=== PATIENT | male | born 1955 | race Caucasian/White ===

== ENCOUNTER 2017-10-05 22:38 | Emergency (ER) | payer OTHER ==
--- OUTSIDE RECORDS SUMMARY | 2017-10-05 22:40 | XMS REPORT | Clinical Summary ---
:1955 Author Organization [facility] Address [address] [place] [address] Care Team Providers Name Role Phone Unknown, Phys Primary Care Provider Unavailable Allergies No Known Allergies Current Medications Prescription Sig. Disp. Refills Start Date End Date Status HYDROcodone-acetaminophe Take 1 tablet by Active n (NORCO) 7.5-325 mg per mouth 4 (four) times tablet a day as needed for moderate pain. gabapentin (NEURONTIN) Take 800 mg by mouth Active 800 mg tablet 3 (three) times a day. carisoprodol (SOMA) 350 Take 350 mg by mouth Active MG tablet every 8 (eight) hours as needed for muscle spasms. nebivolol (BYSTOLIC) 20 Take 20 mg by mouth Active mg tablet daily. aspirin (ECOTRIN) 81 MG Take 81 mg by mouth Active enteric coated tablet daily. Active Problems Not on file Family History Medical History Relation Name Comments Heart disease Father Hypertension Mother Relation Name Status Comments Father Mother Social History Tobacco Use Types Packs/Day Years Used Date Current Some Day Smoker Cigarettes 1 Tobacco Cessation: Ready to Quit: Yes Alcohol Use Drinks/Week oz/Week Comments Yes 1 Shots of liquor 0.6 Sex Assigned at Date Recorded Not on file Last Filed Vital Signs Not on file Plan of Treatment Not on file Results Not on fileafter 10/04/2016 Insurance Payer Benefit Plan / Group Subscriber ID Type Phone Address HUMANA MEDICARE HUMANA MEDICARE PPO/PFFS/ERS [facility] xxxxxxxxx PPO Home: [id number] [phone] [place], [place] [id number]
[2017-10-05] MEDS ORDERED: IPRATROPIUM BROM 0.5MG/2.5ML ONE (23:16)
[2017-10-05] MEDS ORDERED: ALBUTEROL 2.5 MG/3 ML NEB SOL ONE (23:16)
[2017-10-05 23:42] LABS: Absolute Lymphocytes (CBC) 1.1 K/uL (0.7-4.9); Absolute Monocytes 0.8 K/uL (0.1-1.3); Absolute Neutrophil 9.9 K/uL (1.8-8.0); Basophils % 1.1 % (0-1.3); Eosinophils % 2.9 % (0-4.4); Hematocrit 43.8 % (39.6-49.0); Lymphocytes % 8.8 % (15.3-44.8); MCH 32.1 pg (27.0-35.0); MCV 97.5 fL (80-100); MPV 11.6 fL (7.6-11.3); Monocytes % 6.6 % (3.3-12.3); RBC Red Blood Cell Count 4.49 M/uL (4.33-5.43)
[2017-10-05 23:53] LABS: Urine Blood NEGATIVE (NEG); Urine Glucose 2+ (NEG); Urine Protein 1+ (NEG); Urine Specific Gravity 1.005 (1.005-1.030)
[2017-10-05 23:59] LABS: Albumin 3.5 g/dL (3.4-5.0); Bilirubin Total 0.7 mg/dL (0.2-1.0); Magnesium 2.1 mg/dL (1.8-2.4); Potassium 3.9 mmol/L (3.5-5.1); Protein, Total 7.5 g/dL (6.4-8.2)
--- NOTE | 2017-10-06 01:33 | EDPHYS ---
Physician Documentation [facility] Name: Fox Olivia Age: 62 yrs Sex: Male : 1955 Arrival Date: 10/05/2017 Time: 22:38 Bed 18 Private MD: ED Physician Juan English HPI: 10/05 23:12 This 62 yrs old Male presents to ER via Ambulatory with complaints of ps1 Shortness Of Breath, Breathing Difficulty. 23:12 The patient has shortness of breath with light activity. Onset: The symptoms/episode ps1 began/occurred 1 week(s) ago. Duration: The symptoms are intermittent. Associated signs and symptoms: Pertinent positives: non-productive cough, diaphoresis, Pertinent negatives: chest pain, dizziness. hx of COPD and CHF. Recently seen Dr. Steele. Has a history of CAD with stent. . NO DVT symptoms. . Historical: - Allergies: 22:54 No Known Allergies; ao - Home Meds: 22:54 gabapentin oral oral [Active]; Soma Oral [Active]; Bystolic oral oral [Active]; ao - PMHx: 22:54 COPD; CHF; Diabetes - NIDDM; ao - PSHx: 22:54 stents; ao - Immunization history:: Adult Immunizations up to date. - Social history:: Smoking status: Patient uses tobacco products, smokes one pack cigarettes per day. Patient uses alcohol, occasionally. - Ebola Screening: : Patient negative for fever greater than or equal to 101.5 degrees Fahrenheit, and additional compatible Ebola Virus Disease symptoms. ROS: 23:13 Constitutional: Negative for fever, chills, and weight loss, Eyes: Negative for injury, ps1 pain, redness, and discharge, Cardiovascular: Negative for chest pain, palpitations, and edema, Abdomen/GI: Negative for abdominal pain, nausea, vomiting, diarrhea, and constipation, Back: Negative for injury and pain, MS/Extremity: Negative for injury and deformity, Skin: Negative for injury, rash, and discoloration, Neuro: Negative for headache, weakness, numbness, tingling, and seizure. 23:13 Respiratory: Positive for cough, with no reported sputum, shortness of breath. Exam: 23:13 Constitutional: This is a well developed, well nourished patient who is awake, alert, ps1 and in no acute distress. Head/Face: Normocephalic, atraumatic. Eyes: Pupils equal round and reactive to light, extra-ocular motions intact. Lids and lashes normal. Conjunctiva and sclera are non-icteric and not injected. Chest/axilla: Normal chest wall appearance and motion. Nontender with no deformity. No lesions are appreciated. Respiratory: Lungs have equal breath sounds bilaterally, clear to auscultation and percussion. No rales, rhonchi or wheezes noted. No increased work of breathing, no retractions or nasal flaring. Back: No spinal tenderness. No costovertebral tenderness. Full range of motion. 23:13 Skin: Warm, dry with normal turgor. Normal color with no rashes, no lesions, and no evidence of cellulitis. MS/ Extremity: Pulses equal, no cyanosis. Neurovascular intact. Full, normal range of motion. Neuro: Awake and alert, GCS 15, oriented to person, place, time, and situation. Cranial nerves II-XII grossly intact. Sensory grossly intact. 23:13 Cardiovascular: Rate: tachycardic, Rhythm: regular, Heart sounds: murmur, systolic. Vital Signs: 22:50 BP 168 / 80; Pulse 102; Resp 24; Temp 98.7(O); Pulse Ox 96% ; Weight 127.01 kg (R); ao Height 6 ft. 1 in. (185.42 cm) (R); Pain 4/10; 10/06 00:36 BP 153 / 105; Pulse 102; Resp 23 S; Pulse Ox 96% on R/A; jd3 01:48 BP 144 / 85; Pulse 93; Resp 19 S; Pulse Ox 95% on R/A; jd3 10/05 22:50 Body Mass Index 36.94 (127.01 kg, 185.42 cm) ao MDM: 10/05 23:12 Patient medically screened. ps1 10/06 01:34 Data reviewed: vital signs, nurses notes, lab test result(s), EKG, radiologic studies. ps1 ED course: negative d-dimer, neg CXR, has COPD. Will give zpack, albuterol, and medrol. Stable. . 10/05 23:09 Order name: CBC with Diff; Complete Time: 23:47 ps1 10/05 23:09 Order name: D-Dimer; Complete Time: 01:31 ps1 10/05 23:09 Order name: Magnesium; Complete Time: 00:00 ps1 10/05 23:09 Order name: Troponin (emerg Dept Use Only); Complete Time: 00:00 ps1 10/05 23:09 Order name: CMP; Complete Time: 00:00 ps1 10/05 23:28 Order name: Urine Dipstick--Ancillary (enter results); Complete Time: 23:59 eb 10/05 23:09 Order name: XRAY CXR (1 view) ps1 10/05 23:09 Order name: EKG; Complete Time: 23:10 ps1 10/05 23:09 Order name: Cardiac monitoring; Complete Time: 23:11 ps1 10/05 23:09 Order name: EKG - Nurse/Tech; Complete Time: 23:11 ps1 10/05 23:09 Order name: IV Saline Lock; Complete Time: 23:28 ps1 10/05 23:09 Order name: Labs collected and sent; Complete Time: 23:28 ps1 10/05 23:09 Order name: O2 Per Protocol; Complete Time: 23:12 ps1 10/05 23:09 Order name: O2 Sat Monitoring; Complete Time: 23:12 ps1 10/05 23:09 Order name: Urine Dipstick-Ancillary (obtain specimen); Complete Time: 23:28 ps1 Administered Medications: 10/05 23:19 Drug: DuoNeb (3:1) (2.5 mg - 0.5 mg) 3 ml Route: Nebulizer; jd3 10/06 01:47 Follow up: Response: No adverse reaction jd3 Disposition: 10/06/17 01:32 Discharged to Home. Impression: Acute bronchitis. - Condition is Stable. - Discharge Instructions: Acute Bronchitis. - Prescriptions for Zithromax Z- Jeff 250 mg Oral Tablet - take 1 tablet by ORAL route as directed for 5 days Day 1 - take two (2) tablets one time. Day 2, 3, 4 , 5 take one (1) tablet once daily.; 6 tablet. Medrol (Jeff) 4 mg Oral Tablets, Dose Pack - take 1 tablet by ORAL route as directed - follow package instructions; 1 packet. Albuterol Sulfate 90 mcg/actuation - inhale 1-2 puff by INHALATION route every 4-6 hours; 1 Inhaler. - Medication Reconciliation Form, Thank You Letter, Antibiotic Education, Prescription Opioid Use form. - Follow up: Private Physician; When: 5 - 6 days; Reason: Further diagnostic work-up, Recheck today's complaints, Continuance of care, Re-evaluation by your physician. Follow up: Emergency Department; When: As needed; Reason: Fever > 102 F, Trouble breathing, Worsening of condition. - Problem is an acute exacerbation. - Symptoms have improved. Signatures: Dispatcher [employer] EDEstrada Camarillo RN RN ao Davies, Jonathon, RN RN jd3 Singer, Phillip, MD MD ps1 Corrections: (The following items were deleted from the chart) 10/05 22:53 22:53 Social history: Smoking status: jd3 jd3 10/06 01:47 01:32 10/06/2017 01:32 Discharged to Home. Impression: Acute bronchitis. Condition is jd3 Stable. Forms are Medication Reconciliation Form, Thank You Letter, Antibiotic Education, Prescription Opioid Use. Follow up: Private Physician; When: 5 - 6 days; Reason: Further diagnostic work-up, Recheck today's complaints, Continuance of care, Re-evaluation by your physician. Follow up: Emergency Department; When: As needed; Reason: Fever > 102 F, Trouble breathing, Worsening of condition. Problem is an acute exacerbation. Symptoms have improved. ps1
--- NOTE | 2017-10-06 01:33 | ER ---
Nurse's Notes [facility] Name: Fox Olivia Age: 62 yrs Sex: Male : 1955 Arrival Date: 10/05/2017 Time: 22:38 Bed 18 Private MD: Diagnosis: Acute bronchitis Presentation: 10/05 22:47 Presenting complaint: Patient states: Started like a cold and then was unable to breath ao since yesterday. Patient reports some sputum when coughing. Transition of care: patient was not received from another setting of care. Onset of symptoms was October 04, 2017 at 06:00. Risk Assessment: Do you want to hurt yourself or someone else? Patient reports no desire to harm self or others. Initial Sepsis Screen: Does the patient meet any 2 criteria? No. Patient's initial sepsis screen is negative. Does the patient have a suspected source of infection? No. Patient's initial sepsis screen is negative. Care prior to arrival: None. 22:47 Method Of Arrival: Ambulatory ao 22:47 Acuity: EMEKA 3 ao Triage Assessment: 22:53 Respiratory: Reports shortness of breath Onset: The symptoms/episode began/occurred jd3 today, the patient has mild shortness of breath. Historical: - Allergies: 22:54 No Known Allergies; ao - Home Meds: 22:54 gabapentin oral oral [Active]; Soma Oral [Active]; Bystolic oral oral [Active]; ao - PMHx: 22:54 COPD; CHF; Diabetes - NIDDM; ao - PSHx: 22:54 stents; ao - Immunization history:: Adult Immunizations up to date. - Social history:: Smoking status: Patient uses tobacco products, smokes one pack cigarettes per day. Patient uses alcohol, occasionally. - Ebola Screening: : Patient negative for fever greater than or equal to 101.5 degrees Fahrenheit, and additional compatible Ebola Virus Disease symptoms. Screenin:52 Abuse screen: Denies threats or abuse. Nutritional screening: No deficits noted. jd3 Tuberculosis screening: No symptoms or risk factors identified. Fall Risk Ambulatory Aid- None/Bed Rest/Nurse Assist (0 pts). Gait- Normal/Bed Rest/Wheelchair (0 pts) Mental Status- Oriented to own ability (0 pts). Total Mary Fall Scale indicates No Risk (0-24 pts). Assessment: 22:49 General: Appears uncomfortable, Behavior is calm, cooperative, appropriate for age. jd3 Pain: Complains of pain in chest Quality of pain is described as pressure, Also complains of shortness of breath. Neuro: Level of Consciousness is awake, alert, obeys commands, Oriented to person, place, time, situation, Appropriate for age. Cardiovascular: Murmur present Capillary refill < 3 seconds Patient's skin is warm and dry. Rhythm is sinus tachycardia. Respiratory: Airway is patent Respiratory effort is even, labored, Respiratory pattern is regular, symmetrical, Breath sounds with wheezes bilaterally. GI: Abdomen is round Bowel sounds present X 4 quads. Abd is soft and non tender X 4 quads. Patient currently denies nausea, vomiting. : No signs and/or symptoms were reported regarding the genitourinary system. EENT: No signs and/or symptoms were reported regarding the EENT system. Derm: Skin is intact, Skin is dry, Skin is normal, Skin temperature is warm. Musculoskeletal: Circulation, motion, and sensation intact. Range of motion: intact in all extremities. 10/06 00:37 Reassessment: Patient appears in no apparent distress at this time. Patient and/or jd3 family updated on plan of care and expected duration. Pain level reassessed. Patient is alert, oriented x 3, equal unlabored respirations, skin warm/dry/pink. pt resting in bed with eyes closed, even and unlabored respirations, call light in reach, no distress noted at this time. family at bedside. 01:44 Reassessment: Patient appears in no apparent distress at this time. Patient and/or jd3 family updated on plan of care and expected duration. Pain level reassessed. Patient is alert, oriented x 3, equal unlabored respirations, skin warm/dry/pink. pt reported understanding of discharge instructions, even and steady gait upon discharge. Patient states feeling better. Vital Signs: 10/05 22:50 BP 168 / 80; Pulse 102; Resp 24; Temp 98.7(O); Pulse Ox 96% ; Weight 127.01 kg (R); ao Height 6 ft. 1 in. (185.42 cm) (R); Pain /10; 10/06 00:36 BP 153 / 105; Pulse 102; Resp 23 S; Pulse Ox 96% on R/A; jd3 01:48 BP 144 / 85; Pulse 93; Resp 19 S; Pulse Ox 95% on R/A; jd3 10/05 22:50 Body Mass Index 36.94 (127.01 kg, 185.42 cm) ao ED Course: 10/05 22:38 Patient arrived in ED. am2 22:41 Hi Lopez, RN is Primary Nurse. jd3 22:50 Triage completed. ao 22:51 Arm band placed on right wrist. Patient placed in an exam room, on a stretcher, on ao pulse oximetry. 22:54 Patient has correct armband on for positive identification. Placed in gown. Bed in low jd3 position. Call light in reach. Side rails up X2. Adult w/ patient. 23:02 Juan English MD is Attending Physician. ps1 23:31 Inserted saline lock: 20 gauge in left antecubital area, using aseptic technique. Blood mw2 collected. 23:36 X-ray completed. Portable x-ray completed in exam room. Patient tolerated procedure kw well. 23:38 XRAY CXR (1 view) In Process Unspecified. EDMS 10/06 01:46 No provider procedures requiring assistance completed. IV discontinued, intact, jd3 bleeding controlled, No redness/swelling at site. Pressure dressing applied. Administered Medications: 10/05 23:19 Drug: DuoNeb (3:1) (2.5 mg - 0.5 mg) 3 ml Route: Nebulizer; jd3 10/06 01:47 Follow up: Response: No adverse reaction jd3 Outcome: 01:32 Discharge ordered by MD. ps1 01:46 Discharged to home ambulatory, with family. jd3 01:46 Condition: stable 01:46 Discharge instructions given to patient, family, Instructed on discharge instructions, follow up and referral plans. medication usage, Demonstrated understanding of instructions, follow-up care, medications, Prescriptions given X 3. 01:47 Patient left the ED. jd3 Signatures: Dispatcher [employer] EDWV Araceli Melendez Alex, RN RN ao Kasey Victoria am2 Hi Lopez RN RN jJuan Novoa MD MD ps1 Tesfaye Pastor mw2 Corrections: (The following items were deleted from the chart) 10/05 22:53 22:53 Social history: Smoking status: jd3 jd3 10/06 00:38 10/05 22:49 Cardiovascular: Murmur present Capillary refill < 3 seconds Patient's skin jd3 is warm and dry. jd3
--- NOTE | 2017-10-06 08:33 | RAD REPORT ---
EXAM DESCRIPTION: Rossy Single View10/05/2017 11:37 pm CLINICAL HISTORY: Shortness of breath COMPARISON: 2010 FINDINGS: The rafa are blurred likely indicating mild interstitial pulmonary edema. A lung consolid ation is not present. The heart is mildly enlarged IMPRESSION: Mild CHF
--- NOTE | 2017-10-06 10:06 | EKG ---
Test Date: 2017-10-05 Test Time: 22:52:33 Belt Sewer: JAISON MEASUREMENT RESULTS: Intervals: Rate: 96 PA: 150 QRSD: 90 QT: 370 QTc: 467 [place]: P: 52 PA: 150 QRS: 85 T: 25 INTERPRETIVE STATEMENTS: Normal sinus rhythm T wave abnormality, consider inferior ischemia Abnormal ECG Compared to ECG 04/04/2011 06:45:39 T-wave abnormality now present Possible ischemia now present Electronically Signed On 10-06-17 06:22:41 CDT by Carlos Gregory
[2017-10-06 10:09] VITALS: TEMP 98.7; O2SAT 96
[2017-10-06 10:11] VITALS: BP 153/105
== END 2017-10-06 01:47 | disposition home or self-care (01) ==
LOC: ER 22:38
DX: J20.9 Acute bronchitis, unspecified (principal); J44.9 Chronic obstructive pulmonary disease, unspecified; I50.9 Heart failure, unspecified; E11.9 Type 2 diabetes mellitus without complications; F17.210 Nicotine dependence, cigarettes, uncomplicated
CPT/HCPCS: 36415; 71045; 80053; 81003; 83735; 84484; 85025; 85379; 93005; 94640; 99285

== ENCOUNTER 2018-10-13 10:17 | Emergency (ER) | payer OTHER ==
--- OUTSIDE RECORDS SUMMARY | 2018-10-13 10:22 | XMS REPORT | Clinical Summary ---
:1955 Author Organization [facility] Address [address] [place] [id number] Care Team Providers Name Role Phone Unknown, Phys Primary Care Provider Unavailable Allergies No Known Allergies Medications Medication Sig Dispensed Refills Start Date End Date Status HYDROcodone-acetaminop Take 1 tablet by 0 Active hen (NORCO) 7.5-325 mg mouth 4 (four) per tablet times a day as needed for moderate pain. gabapentin (NEURONTIN) Take 800 mg by 0 Active 800 mg tablet mouth 3 (three) times a day. carisoprodol (SOMA) Take 350 mg by 0 Active 350 MG tablet mouth every 8 (eight) hours as needed for muscle spasms. nebivolol (BYSTOLIC) Take 20 mg by 0 Active 20 mg tablet mouth daily. aspirin (ECOTRIN) 81 Take 81 mg by 0 Active MG enteric coated mouth daily. tablet Active Problems Not on file Family History Medical History Relation Name Comments Heart disease Father Hypertension Mother Relation Name Status Comments Father Mother Social History Tobacco Use Types Packs/Day Years Used Date Current Some Day Smoker Cigarettes 1 Tobacco Cessation: Ready to Quit: Yes Alcohol Use Drinks/Week oz/Week Comments Yes 1 Shots of liquor 0.6 Sex Assigned at Date Recorded Not on file Job Start Date Occupation Industry Not on file Not on file Not on file Travel History Travel Start Travel End No recent travel history available. Last Filed Vital Signs Not on file Plan of Treatment Not on file Results Not on fileafter 10/12/2017 Insurance Payer Benefit Plan / Subscriber ID Effective Dates Phone Address Type Group HUMANA MEDICARE HUMANA MEDICARE xxxxxxxxx 2015-Present PPO PPO/PFFS/ERS [facility]
--- NOTE | 2018-10-13 10:47 | ER ---
Nurse's Notes [facility] Name: Fox Olivia Age: 63 yrs Sex: Male : 1955 Arrival Date: 10/13/2018 Time: 10:20 Bed 13 Private MD: Diagnosis: Acute Bacterial Bronchitis;Chronic obstructive pulmonary disease, unspecified Presentation: 10/13 10:26 Presenting complaint: SOB, productive cough with brownish sputum, and pain all over x 1 hb week. Transition of care: patient was not received from another setting of care. Onset of symptoms was October 07, 2018. Risk Assessment: Do you want to hurt yourself or someone else? Patient reports no desire to harm self or others. Care prior to arrival: None. 10:26 Method Of Arrival: Ambulatory hb 10:26 Acuity: EMEKA 3 hb 10:40 Initial Sepsis Screen: Does the patient meet any 2 criteria?. wh 10:46 Initial Sepsis Screen: Does the patient meet any 2 criteria? RR > 20 per min. Does the patient have a suspected source of infection? Yes: Productive cough/pneumonia. Triage Assessment: 10:39 General: Behavior is calm, cooperative, appropriate for age. wh 10:50 Respiratory: Onset: The symptoms/episode began/occurred Since Wednesday, the patient has mild shortness of breath. Historical: - Allergies: 10:27 PENICILLINS; hb 10:27 diazepam; hb - Home Meds: 10:27 Bystolic Oral [Active]; gabapentin Oral [Active]; Soma Oral [Active]; hb - PMHx: 10:27 CHF; COPD; Diabetes - NIDDM; neuropathy; Hypertension; hb - PSHx: 10:27 stents; hb - Immunization history:: Adult Immunizations up to date. - Social history:: Smoking status: Patient uses tobacco products, smokes one pack cigarettes per day. - Ebola Screening: : No symptoms or risks identified at this time. Screenin:28 Abuse screen: Denies threats or abuse. Denies injuries from another. Nutritional hb screening: No deficits noted. Tuberculosis screening: No symptoms or risk factors identified. Fall Risk None identified. Assessment: 10:38 General: Appears in no apparent distress. Pain: Denies pain. Neuro: Level of wh Consciousness is awake, alert, obeys commands, Oriented to person, place, time, situation. Cardiovascular: Heart tones S1 S2 Capillary refill < 3 seconds. Respiratory: Reports shortness of breath cough that is productive, since Wednesday Airway is patent Respiratory effort is even, unlabored, Respiratory pattern is regular, symmetrical, Breath sounds with wheezes. GI: Abdomen is round non-distended. : No signs and/or symptoms were reported regarding the genitourinary system. EENT: No signs and/or symptoms were reported regarding the EENT system. Derm: Skin is intact, is healthy with good turgor, Skin is pink, warm \T\ dry. normal. Musculoskeletal: Range of motion: intact in all extremities. 10:53 Cardiovascular: Rhythm is. Vital Signs: 10:27 BP 159 / 86; Pulse 78; Resp 22; Temp 97.8; Pulse Ox 95% on R/A; Weight 136.08 kg; hb Height 6 ft. 1 in. (185.42 cm); Pain 8/10; 10:27 Body Mass Index 39.58 (136.08 kg, 185.42 cm) ED Course: 10:20 Patient arrived in ED. mr 10:26 Patient has correct armband on for positive identification. Bed in low position. Call mh5 light in reach. Pulse ox on. NIBP on. 10:27 Triage completed. hb 10:27 Arm band placed on. 10:31 Dong Hammond PA is PHCP. 8 10:31 Morteza Ordonez MD is Attending Physician. 8 10:32 Ismael Louis is Primary Nurse. 10:37 Morteza Ordonez MD is Attending Physician. jr8 11:09 No provider procedures requiring assistance completed. Patient did not have IV access during this emergency room visit. Administered Medications: 11:02 Drug: SOLU-Medrol 125 mg Route: IM; Site: left gluteus; 11:11 Follow up: Response: No adverse reaction 11:04 Drug: Tussionex Pennkinetic ER 5 ml Route: PO; 11:10 Follow up: Response: No adverse reaction Outcome: 10:47 Discharge ordered by . jr8 11:09 Discharged to home ambulatory. 11:09 Condition: good 11:09 Discharge instructions given to patient, Instructed on discharge instructions, follow up and referral plans. medication usage, POC Bronchitis Demonstrated understanding of instructions, follow-up care, medications, POC Prescriptions given X 3. 11:11 Patient left the ED. Signatures: Clare FraustoDong PA PA jr8 Mireya Shahid RN RN Ariadna Clark [facility] Ismael Louis Corrections: (The following items were deleted from the chart) 10:47 10:38 Cardiovascular: Heart tones S1 S2 Capillary refill < 3 seconds [facility] 10:48 10:38 Respiratory: Airway is patent Respiratory effort is even, unlabored, Respiratory wh pattern is regular, symmetrical, Breath sounds are diminished 10:48 10:47 Respiratory: wh 10:50 10:38 Respiratory: Airway is patent Respiratory effort is even, unlabored, Respiratory wh pattern is regular, symmetrical, Breath sounds are clear Breath sounds are diminished 10:53 10:38 Cardiovascular: Heart tones S1 S2 Capillary refill < 3 seconds [facility] 10:53 10:38 Respiratory: Reports shortness of breath cough that is productive, since Wednesday Airway is patent Respiratory effort is even, unlabored, Respiratory pattern is regular, symmetrical, Breath sounds are clear Breath sounds are diminished
--- NOTE | 2018-10-13 10:47 | EDPHYS ---
Physician Documentation [facility] Name: Fox Olivia Age: 63 yrs Sex: Male : 1955 Arrival Date: 10/13/2018 Time: 10:20 Bed 13 Private MD: ED Physician Morteza Ordonez HPI: 10/13 10:47 This 63 yrs old Male presents to ER via Ambulatory with complaints of Cough, jr8 Breathing Difficulty. 10:47 The patient or guardian reports cough, that is intermittent, described as mild, with jr8 productive sputum, brown. Onset: The symptoms/episode began/occurred gradually, 2 week(s) ago. Severity of symptoms: At their worst the symptoms were mild, in the emergency department the symptoms are unchanged. Modifying factors: The symptoms are alleviated by nothing, the symptoms are aggravated by nothing. Associated signs and symptoms: Pertinent positives: body aches and chills . The patient has not experienced similar symptoms in the past. The patient has not recently seen a physician. Historical: - Allergies: 10:27 PENICILLINS; hb 10:27 diazepam; hb - Home Meds: 10:27 Bystolic Oral [Active]; gabapentin Oral [Active]; Soma Oral [Active]; hb - PMHx: 10:27 CHF; COPD; Diabetes - NIDDM; neuropathy; Hypertension; hb - PSHx: 10:27 stents; hb - Immunization history:: Adult Immunizations up to date. - Social history:: Smoking status: Patient uses tobacco products, smokes one pack cigarettes per day. - Ebola Screening: : No symptoms or risks identified at this time. ROS: 10:47 Eyes: Negative for injury, pain, redness, and discharge, ENT: Negative for injury, jr8 pain, and discharge, Neck: Negative for injury, pain, and swelling, Cardiovascular: Negative for chest pain, palpitations, and edema, Abdomen/GI: Negative for abdominal pain, nausea, vomiting, diarrhea, and constipation, Back: Negative for injury and pain, MS/Extremity: Negative for injury and deformity, Skin: Negative for injury, rash, and discoloration, Neuro: Negative for headache, weakness, numbness, tingling, and seizure. 10:47 Constitutional: Positive for body aches, chills. 10:47 Respiratory: Positive for cough, shortness of breath, wheezing. Exam: 10:47 Eyes: Pupils equal round and reactive to light, extra-ocular motions intact. Lids and jr8 lashes normal. Conjunctiva and sclera are non-icteric and not injected. Cornea within normal limits. Periorbital areas with no swelling, redness, or edema. ENT: Nares patent. No nasal discharge, no septal abnormalities noted. Tympanic membranes are normal and external auditory canals are clear. Oropharynx with no redness, swelling, or masses, exudates, or evidence of obstruction, uvula midline. Mucous membranes moist. Neck: Trachea midline, no thyromegaly or masses palpated, and no cervical lymphadenopathy. Supple, full range of motion without nuchal rigidity, or vertebral point tenderness. No Meningismus. Cardiovascular: Regular rate and rhythm with a normal S1 and S2. No gallops, murmurs, or rubs. Normal PMI, no JVD. No pulse deficits. Respiratory: Lungs have equal breath sounds bilaterally, clear to auscultation and percussion. No rales, rhonchi or wheezes noted. No increased work of breathing, no retractions or nasal flaring. Abdomen/GI: Soft, non-tender, with normal bowel sounds. No distension or tympany. No guarding or rebound. No evidence of tenderness throughout. Back: No spinal tenderness. No costovertebral tenderness. Full range of motion. Skin: Warm, dry with normal turgor. Normal color with no rashes, no lesions, and no evidence of cellulitis. MS/ Extremity: Pulses equal, no cyanosis. Neurovascular intact. Full, normal range of motion. Neuro: Awake and alert, GCS 15, oriented to person, place, time, and situation. Cranial nerves II-XII grossly intact. Motor strength 5/5 in all extremities. Sensory grossly intact. Cerebellar exam normal. Normal gait. Vital Signs: 10:27 BP 159 / 86; Pulse 78; Resp 22; Temp 97.8; Pulse Ox 95% on R/A; Weight 136.08 kg; hb Height 6 ft. 1 in. (185.42 cm); Pain 8/10; 10:27 Body Mass Index 39.58 (136.08 kg, 185.42 cm) hb MDM: 10:40 Patient medically screened. jr8 10:46 Data reviewed: vital signs, nurses notes, and as a result, I will discharge patient. jr8 Data interpreted: Pulse oximetry: on room air is 95 %. Interpretation: normal. Counseling: I had a detailed discussion with the patient and/or guardian regarding: the historical points, exam findings, and any diagnostic results supporting the discharge/admit diagnosis, the need for outpatient follow up, a family practitioner, to return to the emergency department if symptoms worsen or persist or if there are any questions or concerns that arise at home. Administered Medications: 11:02 Drug: SOLU-Medrol 125 mg Route: IM; Site: left gluteus; 11:11 Follow up: Response: No adverse reaction 11:04 Drug: Tussionex Pennkinetic ER 5 ml Route: PO; 11:10 Follow up: Response: No adverse reaction Disposition: 13:08 Co-signature as Attending Physician, Morteza Ordonez MD. Disposition: 10/13/18 10:47 Discharged to Home. Impression: Acute Bacterial Bronchitis, Chronic obstructive pulmonary disease, unspecified. - Condition is Stable. - Discharge Instructions: Chronic Bronchitis, Cough, Adult. - Prescriptions for Zithromax Z- Jeff 250 mg Oral Tablet - take 1 tablet by ORAL route as directed for 5 days Day 1 - take two (2) tablets one time. Day 2, 3, 4 , 5 take one (1) tablet once daily.; 6 tablet. Albuterol Sulfate 90 mcg/actuation - inhale 1-2 puff by INHALATION route every 4-6 hours; 1 Inhaler. Guaifenesin AC 10- 100 mg/5 mL Oral Liquid - take 10 milliliter by ORAL route every 4 hours As needed; 240 milliliter. - Medication Reconciliation Form, Thank You Letter, Antibiotic Education, Prescription Opioid Use form. - Follow up: Private Physician; When: 5 - 6 days; Reason: Recheck today's complaints, Continuance of care, Re-evaluation by your physician. - Problem is new. - Symptoms have improved. Signatures: Dong Hammond PA PA jr8 Mireya Shahid RN RN Ismael Chen Morteza Ordonez MD MD Corrections: (The following items were deleted from the chart) 11:11 10:47 10/13/2018 10:47 Discharged to Home. Impression: Acute Bacterial Bronchitis; Chronic obstructive pulmonary disease, unspecified. Condition is Stable. Forms are Medication Reconciliation Form, Thank You Letter, Antibiotic Education, Prescription Opioid Use. Follow up: Private Physician; When: 5 - 6 days; Reason: Recheck today's complaints, Continuance of care, Re-evaluation by your physician. Problem is new. Symptoms have improved. jr8
[2018-10-13] MEDS ORDERED: METHYLPREDNISOLONE 125 MG INJ ONE (11:12)
[2018-10-13] MEDS ORDERED: HYDROCODONE/CHLORPHEN 5 ML/OSYR ONE (11:13)
[2018-10-13 11:17] VITALS: BP 159/86; TEMP 97.8; O2SAT 95
== END 2018-10-13 11:11 | disposition home or self-care (01) ==
LOC: ER 10:17
DX: J20.8 Acute bronchitis due to other specified organisms (principal); J44.9 Chronic obstructive pulmonary disease, unspecified; I11.0 Hypertensive heart disease with heart failure; I50.9 Heart failure, unspecified; E11.9 Type 2 diabetes mellitus without complications; F17.210 Nicotine dependence, cigarettes, uncomplicated; Z88.0 Allergy status to penicillin
CPT/HCPCS: 96372; 99283; J2930

== ENCOUNTER 2018-12-24 18:15 | Emergency (ER) | payer OTHER ==
--- OUTSIDE RECORDS SUMMARY | 2018-12-24 18:17 | XMS REPORT | Clinical Summary ---
:1955 Author Organization [employer] Address [address] [place] [id number] Care Team Providers Name Role Phone Unknown, [...] oz/Week Comments Yes 1 Shots of liquor 1.0 Sex Assigned at Date Recorded Not on file Job Start Date Occupation Industry Not on file Not on file Not on file Travel History Travel Start Travel End No recent travel history available. Last Filed Vital Signs Not on file Plan of Treatment Not on file Results Not on fileafter 12/23/2017 Insurance Payer Benefit Plan / Subscriber ID Effective Dates Phone Address Type Group HUMANA MEDICARE HUMANA MEDICARE xxxxxxxxx 2015-Present PPO PPO/PFFS/ERS [facility]
[2018-12-24] MEDS ORDERED: LIDOCAINE 1% MPF 5 ML VIAL ONE (19:07)
[2018-12-24] MEDS ORDERED: TETANUS & DIPHTHERIA TOX,ADULT 0.5 ML VIAL ONE (19:23)
--- NOTE | 2018-12-24 20:18 | ER ---
Nurse's Notes [facility] Name: Fox Olivia Age: 63 yrs Sex: Male : 1955 Arrival Date: 12/24/2018 Time: 18:17 Bed 6 Private MD: Unknown, Unknown Diagnosis: Laceration without foreign body of right hand Presentation: 12/24 18:46 Presenting complaint: Patient states: He was working on an air conditioner and he cut aj1 his right hand. Bleeding controlled at this time. Transition of care: patient was not received from another setting of care. Complicating Factors: There are no complicating factors for this patient. Onset of symptoms was December 24, 2018 at 18:00. Risk Assessment: Do you want to hurt yourself or someone else? Patient reports no desire to harm self or others. Initial Sepsis Screen: Does the patient meet any 2 criteria? No. Patient's initial sepsis screen is negative. Does the patient have a suspected source of infection? No. Patient's initial sepsis screen is negative. Care prior to arrival: None. 18:46 Method Of Arrival: Ambulatory aj 18:46 Acuity: EMEKA 4 aj1 Triage Assessment: 18:48 General: Appears in no apparent distress. comfortable, Behavior is calm, cooperative, aj1 appropriate for age. Pain: Complains of pain in right hand Pain currently is 10 out of 10 on a pain scale. Neuro: Level of Consciousness is awake, alert, obeys commands. Cardiovascular: Patient's skin is warm and dry. Respiratory: Airway is patent Respiratory effort is even, unlabored, Respiratory pattern is regular, symmetrical. Historical: - Allergies: 18:48 diazepam; aj1 18:48 PENICILLINS; aj1 - Home Meds: 20:25 Bystolic Oral [Active]; gabapentin Oral [Active]; Soma Oral [Active]; ak1 - PMHx: 18:48 CHF; COPD; Diabetes - NIDDM; Hypertension; neuropathy; aj1 - Immunization history:: Flu vaccine is not up to date. - Social history:: Smoking status: Patient uses tobacco products, smokes one-half pack cigarettes per day. - Ebola Screening: : Patient denies travel to an Ebola-affected area in the 21 days before illness onset. Screenin:52 Abuse screen: Denies threats or abuse. Denies injuries from another. Nutritional bp screening: No deficits noted. Tuberculosis screening: No symptoms or risk factors identified. Fall Risk None identified. Assessment: 18:50 General: SEE TRIAGE NOTE. Musculoskeletal: Circulation, motion, and sensation intact. bp Range of motion: intact in all extremities. Injury Description: Laceration sustained to right hand is 2.6 to 7.5 cm long, not bleeding. 19:25 Reassessment: wound irrigated with 1L NS and chlorhexidine. pt tolerated well. ak1 20:31 Reassessment: wound dressed with nonadherent 4X4 and kerlex. ak1 Vital Signs: 18:48 BP 175 / 83; Pulse 89; Resp 18; Temp 97.8; Pulse Ox 96% on R/A; Weight 126.1 kg (R); aj1 Height 6 ft. 4 in. (193.04 cm) (R); Pain 10/10; 20:31 BP 155 / 84; Pulse 88; Resp 18; Temp 98.0; Pulse Ox 96% on R/A; ak1 18:48 Body Mass Index 33.84 (126.10 kg, 193.04 cm) aj1 ED Course: 18:17 Patient arrived in ED. ag5 18:18 Unknown, Unknown is Private Physician. ag5 18:48 Triage completed. aj1 18:48 Veronica Mccloud NP is PHCP. rh1 18:48 Jarrod Christensen MD is Attending Physician. rh1 18:48 Arm band placed on Patient placed in an exam room. aj1 18:50 Cholo Keane, JUVE is Primary Nurse. bp 18:52 Patient has correct armband on for positive identification. Bed in low position. Call bp light in reach. Side rails up X2. 20:24 Assist provider with laceration repair Set up tray. Patient tolerated well. Patient did ak1 not have IV access during this emergency room visit. Administered Medications: 19:25 Drug: Lidocaine (1 %) 1 vials {Note: administered by Veronica Hdz to wound to left tl1 thumb.} Volume: 20 ml; Route: Infiltration; 19:27 Drug: Tetanus-Diphtheria Toxoid Adult 0.5 ml {Interline Clerk: Hiri. Exp: tl1 07/28/2020. Lot #: [id number]. } Route: IM; Site: left deltoid; 20:25 Follow up: Response: No adverse reaction ak1 Outcome: 20:17 Discharge ordered by . rh1 20:25 Discharged to home ambulatory. ak1 20:25 Condition: good 20:25 Discharge instructions given to patient, Instructed on discharge instructions, follow up and referral plans. wound care, Demonstrated understanding of instructions, follow-up care. 20:32 Patient left the ED. ak1 Signatures: Caren Chacko RN RN aj1 Poppy Andersen RN RN 1 Kirsten Gomez RN RN ak1 Veronica Mccloud, PARKER WELDING MACHINE OPERATOR/TENDER 1 Cholo Keane RN RN Abbey Damian ag5
--- NOTE | 2018-12-24 20:19 | EDPHYS ---
Physician Documentation [facility] Name: Fox Olivia Age: 63 yrs Sex: Male : 1955 Arrival Date: 12/24/2018 Time: 18:17 Bed 6 Private MD: Unknown, Unknown ED Physician Jarrod Christensen HPI: 12/24 18:59 This 63 yrs old Male presents to ER via Ambulatory with complaints of rh1 Laceration, Finger Injury. 18:59 Onset: The symptoms/episode began/occurred just prior to arrival. The patient has not rh1 experienced similar symptoms in the past. The patient has not recently seen a physician. He was working on an AC unit, the fan blade was running and he attempted to clean underneath and dorsal first finger of right hand was cut. . Historical: - Allergies: 18:48 diazepam; aj1 18:48 PENICILLINS; aj1 - Home Meds: 20:25 Bystolic Oral [Active]; gabapentin Oral [Active]; Soma Oral [Active]; ak1 - PMHx: 18:48 CHF; COPD; Diabetes - NIDDM; Hypertension; neuropathy; aj1 - Immunization history:: Flu vaccine is not up to date. - Social history:: Smoking status: Patient uses tobacco products, smokes one-half pack cigarettes per day. - Ebola Screening: : Patient denies travel to an Ebola-affected area in the 21 days before illness onset. ROS: 18:59 Constitutional: Negative for fever rh1 18:59 MS/extremity: Positive for laceration, pain, Negative for decreased range of motion, paresthesias. 18:59 Skin: Positive for laceration(s). 18:59 Neuro: Negative for numbness, tingling, weakness. 18:59 All other systems are negative. Exam: 18:59 Constitutional: This is a well developed, well nourished patient who is awake, alert, rh1 and in no acute distress. Head/Face: Normocephalic, atraumatic. Chest/axilla: Normal chest wall appearance and motion. Nontender with no deformity. No lesions are appreciated. Cardiovascular: Regular rate and rhythm with a normal S1 and S2. No gallops, murmurs, or rubs. No JVD. No pulse deficits. Respiratory: Lungs have equal breath sounds bilaterally, clear to auscultation. No rales, rhonchi or wheezes noted. No increased work of breathing. Abdomen/GI: Soft, non-tender, with normal bowel sounds. No distension. No guarding or rebound. No evidence of tenderness throughout. 18:59 Musculoskeletal/extremity: Extremities: grossly normal except: noted in the right hand: laceration, pain, tenderness, There is no evidence of decreased ROM, deformity, ROM: intact in all extremities, full active range of motion, in the right hand, full passive range of motion, in the dorsal aspect of distal phalanx of right thumb, dorsal aspect of proximal phalanx of right thumb, dorsal aspect of middle phalanx of right index finger, dorsal aspect of proximal phalanx of right index finger, dorsal aspect of middle phalanx of right middle finger, dorsal aspect of proximal phalanx of right middle finger, dorsal aspect of middle phalanx of right ring finger, dorsal aspect of proximal phalanx of right ring finger, dorsal aspect of middle phalanx of right little finger and dorsal aspect of proximal phalanx of right little finger, good resistance with right index finger extension, Pulses: noted to be 2+ in the right radial artery and left radial artery, Perfusion: the extremity is pink, warm, with brisk capillary refill, Sensation intact. 18:59 Skin: injury, laceration(s), the wound is approximately 3 cm(s), of the dorsal aspect of proximal phalanx of right index finger, that can be described as clean, no foreign body, linear, without bleeding. 18:59 Neuro: Orientation: is normal, to person, place \T\ time. Mentation: is normal, lucid, able to follow commands, Motor: is normal, moves all fours, strength is 5/5 in all extremities, Sensation: is normal, no obvious gross deficits, numbness, is not appreciated, tingling, is not appreciated, Gait: is steady, at a normal pace, without difficulty. Vital Signs: 18:48 BP 175 / 83; Pulse 89; Resp 18; Temp 97.8; Pulse Ox 96% on R/A; Weight 126.1 kg (R); aj1 Height 6 ft. 4 in. (193.04 cm) (R); Pain 10/10; 20:31 BP 155 / 84; Pulse 88; Resp 18; Temp 98.0; Pulse Ox 96% on R/A; ak1 18:48 Body Mass Index 33.84 (126.10 kg, 193.04 cm) aj1 Laceration: 20:15 Wound Repair of 3cm ( 1.2in ) subcutaneous laceration to dorsal aspect of proximal rh1 phalanx of right index finger and dorsum of right hand. Linear shaped.. Distal neuro/vascular/tendon intact. Anesthesia: Wound infiltrated with 5 mls of 1% lidocaine. Wound prep: Moderate cleansing with hibiclenz by nurse, Wound irrigation with saline by nurse. Skin closed with 9 4-0 Prolene using simple sutures and sterile technique. Dressed with Neosporin, 4x4's, non-adherent dressing. Patient tolerated well. MDM: 18:59 Patient medically screened. rh1 20:15 Data reviewed: vital signs, nurses notes, and as a result, I will discharge patient. rh1 Data interpreted: Pulse oximetry: on room air is 96 %. Interpretation: normal. Counseling: I had a detailed discussion with the patient and/or guardian regarding: the historical points, exam findings, and any diagnostic results supporting the discharge/admit diagnosis, the need for outpatient follow up, a family practitioner, to return to the emergency department if symptoms worsen or persist or if there are any questions or concerns that arise at home. 12/24 19:11 Order name: Dressing - Wound; Complete Time: 20:25 rh1 12/24 19:11 Order name: Gloves, Sterile; Complete Time: 19:36 rh1 12/24 19:11 Order name: Setup Suture Tray; Complete Time: 19:36 1 12/24 19:11 Order name: Wound Care: scrub with clorhexidine and irrigate with 1 L NS; Complete rh1 Time: 19:28 Administered Medications: 19:25 Drug: Lidocaine (1 %) 1 vials {Note: administered by Veronica Hdz to wound to left tl1 thumb.} Volume: 20 ml; Route: Infiltration; 19:27 Drug: Tetanus-Diphtheria Toxoid Adult 0.5 ml {Control Electrician: [employer]. Exp: tl1 07/28/2020. Lot #: [id number]. } Route: IM; Site: left deltoid; 20:25 Follow up: Response: No adverse reaction ak1 Disposition: 12/25 07:39 Co-signature as Attending Physician, Jarrod Christensen MD. rn Disposition: 12/24/18 20:17 Discharged to Home. Impression: Laceration without foreign body of right hand. - Condition is Stable. - Discharge Instructions: Laceration Care, Adult, Sutured Wound Care. - Medication Reconciliation Form, Thank You Letter, Antibiotic Education, Prescription Opioid Use form. - Follow up: Emergency Department; When: As needed; Reason: If symptoms return, Worsening of condition. Follow up: Private Physician; When: 10 - 14 days; Reason: Recheck today's complaints, Continuance of care, Re-evaluation by your physician. - Problem is new. - Symptoms have improved. - Notes: Have your stitches removed in 14 days. Signatures: Caren Chacko, RN RN aj1 Jarrod Christensen MD MD rn Lasagna, Tonya, RN RN tl1 Kirsten Gomez, RN RN ak1 Veronica Mccloud, PARKER ONLINE TUTOR rh1 Corrections: (The following items were deleted from the chart) 12/24 19:13 18:59 He was working on an AC unit, the fan blade was running and he attempted to clean rh1 underneath and dorsal first finger was cut. . rh1 20:32 20:17 12/24/2018 20:17 Discharged to Home. Impression: Laceration without foreign body ak1 of right hand. Condition is Stable. Forms are Medication Reconciliation Form, Thank You Letter, Antibiotic Education, Prescription Opioid Use. Follow up: Emergency Department; When: As needed; Reason: If symptoms return, Worsening of condition. Follow up: Private Physician; When: 10 - 14 days; Reason: Recheck today's complaints, Continuance of care, Re-evaluation by your physician. Problem is new. Symptoms have improved. rh1
[2018-12-25 02:18] VITALS: O2SAT 96
[2018-12-25 02:19] VITALS: BP 155/84; TEMP 98
== END 2018-12-24 20:32 | disposition home or self-care (01) ==
LOC: ER 18:15
PROC: 0JQJ0ZZ Repair Right Hand Subcutaneous Tissue and Fascia, Open Approach (ICD-10-PCS; principal; 2018-12-24)
DX: S61.210A Laceration without foreign body of right index finger without damage to nail, initial encounter (principal); I10 Essential (primary) hypertension; F17.210 Nicotine dependence, cigarettes, uncomplicated; W26.8XXA Contact with other sharp object(s), not elsewhere classified, initial encounter; Y93.89 Activity, other specified; Y92.9 Unspecified place or not applicable; Z88.0 Allergy status to penicillin; Z88.8 Allergy status to other drugs, medicaments and biological substances; Z23 Encounter for immunization
CPT/HCPCS: 90471; 90714; 99283

== ENCOUNTER 2020-12-02 18:05 | Emergency (ER) | payer OTHER ==
--- OUTSIDE RECORDS SUMMARY | 2020-12-02 18:08 | XMS REPORT | Continuity of Care Document ---
:1955 Author Organization [facility] t Address [address] [place] [address] Care Team Providers Name Role Phone [phone] Primary Care Physician Unavailable Cyndi SHAH Attending Clinician Montez Champion MD Attending Clinician Linda RODRIGUEZ Attending Clinician Unavailable Vernon Andino MD Attending Clinician Chris Luna MD Attending Clinician Pablo SHAH, V. Attending Clinician Ubaldo Attending Clinician MD VERNON ANDINO Attending Clinician Unavailable Provider Attending Clinician Unavailable Only, Test Attending Clinician Unavailable Greg AN Attending Clinician Unavailable Ivette SHAH Attending Clinician Alesia SHAH, OKat Attending Clinician NORY Attending Clinician Unavailable DAVID Admitting Clinician Unavailable MD VERNON ANDINO Admitting Clinician Unavailable ALESIA Admitting Clinician Unavailable Payers Payer Name Policy Type Policy Effective Date Expiration Date Sour ce Number HUMANA MEDICAREHUMANA [id number] 2018 MD Chava LARRY MEDICARE 00:00:00 [id number] PresentMedicare HUMANA MEDICAREHUMANA [id number] 2019 Met marie MEDICARE PPO/PFFS/ERS 00:00:00 Sandro briscoe [id number] 2019- PresentPPO MEDICAREMEDICARE PART [id number] 2008 In thodist A AND 00:00:00 [facility] [id number] 2008- [place] Condition Condition Condition Status Onset Resolution Last Treating Co mments Source Name Details Category Date Date Treatment Clinician Date Hyperlipid Hyperlipid Disease Active 2019-04 M ethodi emia emia 1-13 st 00:00: Hospita 00 l Coronary Coronary Disease Active Overview: Me thodi artery artery [address] disease disease 00:00: g of this Hospi ta involving involving 00 note l asa'carsarmiut asa'carsarmiut might be coronary coronary different artery of artery of from the asa'carsarmiut asa'carsarmiut original. heart heart Added without without automatic angina angina ally from pectoris pectoris request for surgery [id number] Pre-proced Pre-proced Disease Active Overview : Methodi ural ural [address] laboratory laboratory 00:00: g of this Hospita examinatio examinatio 00 note l n n might be different from the original. 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-24 st valve valve 00:00: Hospita stenosis stenosis 00 l Allergies, Adverse Reactions, Alerts Allergy Allergy Status Severity Reaction(s) Onset Inactive Treating Comm ents Source Name Type Date Date Clinician Diazepam Propensi Active Other (See I got Me thodi ty to Comments) 8-[address] adverse 00:00: becomes Hospita reaction 00 crazy l s to drug Family History Family Member Diagnosis Comments Start Date Stop Date Source Natural brother Melanoma [place] Natural brother Heart disease Method [facility] Natural father Basal cell carcinoma MD [place] Natural father Squamous cell MD [place] rskrysta carcinoma Natural father Heart disease [facility] Natural mother Basal cell carcinoma MD [place] Natural mother Squamous cell Dami rson carcinoma Natural mother Hypertension [facility] Natural sister Hypertension [facility] Natural sister Brain cancer [facility] Social History Social Habit Start Date Stop Date Quantity Comments Source Cigarettes smoked 2020-03-02 2020-03-[address] current (pack per 00:00:00 00:00:00 Hospita l day) - Reported Cigarette 2020-03-02 2020-03-02 [facility]ism pack-years 00:00:00 00:00:00 Hospital Tobacco use and 2020-03-02 2020-03-02 Never used [facility]ism exposure 00:00:00 00:00:00 Hospital Alcohol intake 2020-03-02 2020-03-02 Current drinker Metho dist 00:00:00 00:00:[address] [facility] Hospital (finding) Alcohol Comment 2020-01-31 2020-01-31 rarely [facility]ism 00:00:00 00:00:00 Hospital History of tobacco 2020-01-17 Current smoker Me thodist use 00:00:00 Hospital Tobacco Comment 2019-01-12 2019-01-12 He refused MD Jacob on 00:00:00 00:00:00 smoking cessation counseling. Sex [birth year] [facility]ism 00:00:00 00:00:00 [facility] Smoking Status Start Date Stop Date Source Former smoker 2020-03-02 00:00:00 2020-03-02 00:00:00 [facility] Heavy tobacco smoker 2019-03-13 00:00:00 MD Dami velázquez Medications Ordered Filled Start Stop Current Ordering Indication Dosage Frequency Signature Comments Components Source Medication Medication Date Date Medication? Clinician (SIG) Name Name HYDROcodone 2019-04 Yes 1{tbl} Q.25D Take 1 M ethodi -acetaminop 1-[address] ash (NORCO) 17:06: mouth 4 Hos david 7.5-325 mg 46 (four) l per tablet times a day as needed for moderate pain. gabapentin 2019-04 Yes 800mg [id number] Take 800 Methodi (NEURONTIN) 1-13 [id number] mg by s t 800 mg 17:06: 3D mouth 3 Hospita tablet 46 (three) l times a day. carisoprodo 2019-04 Yes 350mg Q8H Take 350 M ethodi l (SOMA) 1-[address] 350 MG 17:06: mouth Hospita tablet 46 every 8 l (eight) hours as needed for muscle spasms. aspirin 2019-04 Yes 81mg QD Take 81 mg Meth sergey (ECOTRIN) 1-[address] 81 MG 17:06: nightly. Hospita enteric 46 l coated tablet metFORMIN 2019-04 Yes 1000mg QD Take 1,000 Methodi (GLUCOPHAGE 1-[address] ) 1,000 mg 17:06: mouth Hospit a tablet 46 nightly. l albuterol 2019-04 Yes 2{puff} Q6H Inhale 2 M ethodi (PROAIR 1-[address] HFA) 90 17:06: every 6 Hospita mcg/actuati 46 (six) l on inhaler hours as needed for wheezing. traMADoL 2019-04 Yes 03835 50mg Q6H Take 50 mg Me thodi (ULTRAM) 50 -[address] mg tablet 17:06: every 6 Hospi ta 46 (six) l hours as needed for moderate pain .acute pain. glipiZIDE 2019-04 Yes 5mg QD Take 5 mg Met hodi (GLUCOTROL) -[address] 5 MG tablet 17:06: nightly. Ho spita 46 l olmesartan 2019-04 Yes 5mg QD Take 5 mg Me thodi (BENICAR) 5 -[address] MG tablet 17:06: daily. Hospit a 46 l DULoxetine 2019-04 Yes 60mg QD Take 60 mg M ethodi (CYMBALTA) -[address] 60 MG 17:06: daily. Hospita capsule 46 l umeclidiniu 2019-04 Yes Inhale. Met hodi m bromide 1-13 st (INCRUSE 17:06: Hospita ELLIPTA 46 l INHL) nebivoloL 2019-04 Yes 20mg QD Take 20 mg Me thodi (BYSTOLIC) -[address] 20 mg 17:06: daily. Hospita tablet 46 l exenatide 2019-04 Yes Q7D Inject Method i microsphere -[address] (BYDUREON 17:06: skin once H ospita BCISE SUBQ) 46 a week. l nebivolol 2019-04- No 20mg QD Take 20 mg M ethodi (BYSTOLIC) 1-13 11-[address] 20 mg 17:04: 00:00 nightly. Hospita tablet 32 :00 l omeprazole 2019-04 Yes 40mg QD Take 40 mg M ethodi (PriLOSEC) [address] 40 MG 16:59: daily. Hospita capsule 47 l clopidogreL 2019-04 Yes TAKE 1 Meth sergey (PLAVIX) 75 0-[address] mg tablet 00:00: MOUTH Hospita 00 EVERY DAY l predniSONE 2019-04 Yes Methodi (DELTASONE) 0-19 st 2.5 mg 00:00: Hospita tablet 00 l nicotine 2019-04- No 1{patch Q24H Place 1 Me thodi (NICODERM 0-15 11-15 } patch on st CQ) 14 00:00: 05:59 the skin Hospit a mg/24 hr 00 :00 daily for l 30 days. atorvastati 2019-04- No 80mg QD Take 1 Met hodi n (LIPITOR) 0-15 11-13 tablet (80 s t 80 MG 00:00: 00:00 mg total) Hospit a tablet 00 :00 by mouth l daily for 30 days. clopidogreL 2019-04 2020- No 75mg QD Take 1 Met hodi (PLAVIX) 75 0-15 10-19 tablet (75 s t mg tablet 00:00: 00:00 mg total) Ho spita 00 :00 by mouth l daily for 30 days. nicotine 2020- No 1{patch QD Place 1 Me thodi (NICODERM 8-26 09-26 } patch on st CQ) 21 00:00: 04:59 the skin Hospit a mg/24 hr 00 :00 daily for l 30 days. atorvastati 2020- No 40mg QD Take 1 Met hodi n (LIPITOR) 8-25 09-25 tablet (40 s t 40 mg 00:00: 04:59 mg total) Hospit a tablet 00 :00 by mouth l nightly for 30 days. gabapentin 2018-04 Yes 750mg Take 750 MD (NEURONTIN) 1-20 mg by Anderso 800 mg 18:03: mouth 3 n tablet 45 (three) times a day. carisoprodo 2018-04 Yes 50mg Take 50 mg MD l (SOMA) 1-20 by mouth Anderso 350 mg 18:03: daily. n tablet 45 nebivolol 2018-04 Yes 10mg Take 10 mg MD (BYSTOLIC) 1-20 by mouth Zhen so 20 mg 18:03: daily. n tablet 45 acetaminoph 2018-04 Yes Basal cell 1{tbl} Take 1 MD en-codeine 1-13 carcinoma tablet by Anderso (TYLENOL 00:00: of skin of mouth 3 n #3) 300 00 right ear (three) mg-30 mg times a tablet day as needed for moderate pain. celecoxib 2018-04 Yes Basal cell 100mg Take 1 MD (CeleBREX) 1-13 carcinoma capsule A nderso 100 mg 00:00: of skin of (100 mg) n capsule 00 right ear by mouth 2 (two) times a day as needed for mild pain. mupirocin 2018-04 Yes Basal cell Apply M D (BACTROBAN) 0-28 carcinoma topically Anderso 2% ointment 00:00: of skin of to n 00 right ear affected area(s) twice daily. BD ALCOHOL 2018-04 Yes SWABS padm 0-09 Anderso 00:00: n 00 ACCU-CHEK 2018-04 Yes SYD PLUS 0-09 Anderso TEST STRP 00:00: n strp 00 ACCU-CHEK 2018-04 Yes SOFTCLIX 0-09 Anderso LANCETS 00:00: n lancets 00 buPROPion 2018- Yes PLEASE SEE (WELLBUTRIN 8-22 ATTACHED Dami rso XL) 150 mg 00:00: FOR n 24 hr 00 DETAILED tablet DIRECTIONS DULoxetine Yes TAKE 1 MD (CYMBALTA) 7-11 CAPSULE BY And erso 60 mg 00:00: MOUTH n capsule 00 EVERY DAY ranitidine 2018- Yes TAKE 1 MD (ZANTAC) 7-11 TABLET BY Cecil o 300 mg 00:00: MOUTH n tablet 00 EVERY DAY IN THE MORNING VENTOLIN 2018- Yes HFA 90 6-27 Anderso mcg/actuati 00:00: n on inhaler 00 TRUE METRIX 2018- Yes MD GLUCOSE 5-01 Anderso METER misc 00:00: n 00 lancets 30 2018- Yes gauge misc 5- Anderso 00:00: n 00 lancing 2019-0 Yes device misc 5- Anderso 00:00: n 00 SURE 2019-0 Yes COMFORT PEN 5-01 Anderso NEEDLE 32 00:00: n gauge x 00 5/32" ndle BD 2017- Yes ULTRA-FINE 2-19 Anderso MINI PEN 00:00: n NEEDLE 31 00 gauge x 3/16" ndle metFORMIN 2017- Yes (GLUCOPHAGE 2-19 Anderso ) 1000 mg 00:00: n tablet 00 Vital Signs Vital Name Observation Time Observation Value Comments Source Systolic blood 2020-02-29 23:07:00 157 mm[Hg] [facility] pressure Diastolic blood 2020-02-29 23:07:00 90 mm[Hg] [facility] pressure Heart rate 2020-02-29 23:07:00 64 /min [facility] Body height 2020-02-29 23:07:00 185.4 cm [facility] Body weight 2020-02-29 23:07:00 123.378 kg [facility] BMI 2020-02-29 23:07:00 35.89 kg/m2 [facility] Oxygen saturation in 2020-02-29 23:07:00 96 /min [facility] Arterial blood by Pulse oximetry Body temperature 2020-02-01 14:00:06 36.11 Jeniffer [facility] Respiratory rate 2020-02-01 14:00:06 18 /min [facility] Procedures Procedure Date / Time Performing Clinician Source Performed HC COMPLETE BLD COUNT 2020-03-01 18:05:00 Otis Champion [facility] W/AUTO DIFF Claudio BASIC METABOLIC PANEL 2020-03-01 18:05:00 Zaki Championhidelmi Herrmann [facility] Claudio ESTIMATED GFR 2020-03-01 18:05:00 JayceeOtis Montez [facility] Claudio ECG 12-LEAD 2020-03-01 16:48:20 Jaycee Otis [facility] Claudio TTE COMPLETE, WO CONTRAST, 2020-03-01 16:44:42 Otis Champion ir [facility] W DOPPLER ([id number]) Claudio POC GLUCOSE 2020-02-01 12:51:00 Abhijit Andino spital [place] BASIC METABOLIC PANEL 2020-02-01 10:00[facility] COMPLETE BLD [facility] 2020-02-01 10:00:00 [facility] W/AUTO DIFF ESTIMATED GFR 2020-02-01 10:00:00 [facility] [place] TTE COMPLETE, WO CONTRAST, 2020-02-01 09:50:00 [facility] W DOPPLER ([id number]) ECG PRE/POST OP 2020-02-01 08:52:45 Glenna [facility] spital POC GLUCOSE 2020-02-01 02:44:00 Abhijit Andino spital [place] ECG PRE/POST OP 2020-02-01 02:22:09 Manzanares [facility] spital POC GLUCOSE 2020-02-01 00:12:[address] [facility] spital [place] EP TEMPORARY LEAD INSERTION 2020-02-01 00:08:00 [facility] [place] CV TAVR FOR CARDIOLOGY 2020-02-01 00:08:00 [facility] CV LEFT HEART CATH 2020-02-01 00:08:00 [facility] CV ANGIOGRAM THORACIC AORTA 2020-02-01 00:08:00 [facility] CV AORTOGRAM ABDOMINAL 2020-02-01 00:08:00 [facility] AORTA [place] ACTIVATED CLOTTING TIME 2020-01-31 23:34:00 [facility] [place] ANESTHESIA MARIZOL 2020-01-31 23:28:05 [facility] UT AN ELECTIVE ENDOTRACHEAL 2020-01-31 23:16:23 [facility] AIRWAY ARTERIAL LINE 2020-01-31 23:15:46 [facility] ACTIVATED CLOTTING TIME 2020-01-31 23:12:00 [facility] [place] ACTIVATED CLOTTING TIME 2020-01-31 23:07:[address] [facility] ARTERIAL BLOOD GAS, 2020-01-31 22:59:00 David [facility] CORRECTED [place] SODIUM LEVEL, SYRINGE 2020-01-31 22:59:00 David, Abhijit [facility] [place] POTASSIUM, SYRINGE 2020-01-31 22:59:00 David, [facility] [place] HEMOGLOBIN, SYRINGE 2020-01-31 22:59:00 David [facility] [place] IONIZED CALCIUM, ARTERIAL 2020-01-31 22:59:00 [facility] [place] GLUCOSE LEVEL, SYRINGE 2020-01-31 22:59:00 [facility] ACTIVATED CLOTTING TIME 2020-01-31 22:53:00 [facility] TAVR FOR SURGERY 2020-01-31 22:34:[address] [facility] Chris POC GLUCOSE 2020-01-31 18:12:00 Abhijit Andino shala Junior ABO AND RH CONFIRMATION 2020-01-31 14:01:00 [facility] POC GLUCOSE 2020-01-31 12:49:00 Abhijit Andino shala Junior HC COMPLETE BLD COUNT 2020-01-31 11:15:00 Lenin [facility] W/AUTO DIFF [place] TYPE AND SCREEN 2020-01-31 11:15:00 [facility] 2020-01-31 11:15:00 [facility] 2020-01-31 09:34:00 [facility] 2020-01-31 09:34:00 [facility]OL[facility] PANEL 2020-01-31 09:33:00 Lenin [facility] ESTIMATED GFR 2020-01-31 09:33:00 [facility] P[facility] GLUCOSE 2020-01-31 03:32:00 Abhijit Andino [place] POC GLUCOSE 2020-01-31 02:56:00 Abhijit Andino [place] POC GLUCOSE 2020-01-30 22:16:00 Abhijit Andino [place] POC GLUCOSE 2020-01-30 17:26:00 Abhijit Andino shala Junior COVID-19 QUALITATIVE RT-PCR 2020-01-30 17:17:00 Guerrero Luna [facility] Chris POC GLUCOSE 2020-01-30 12:56:00 Abhijit Andino shala [place] BASIC METABOLIC PANEL 2020-01-30 08:05:00 [facility] ESTIMATED GFR 2020-01-30 08:05:00 Abhijit Andino shala [place] HC COMPLETE BLD COUNT 2020-01-30 07:30:00 [facility] W/AUTO DIFF ECG 12-LEAD 2020-01-30 07:27:17 [facility] Ho shala HEPATIC FUNCTION PANEL 2020-01-30 05:26:00 [facility] [place] CREATINE KINASE, TOTAL 2020-01-30 05:26:00 [facility] (CPK) [facility] PROTHROMBIN TIME WITH INR 2020-01-30 03:40:00 [facility] PARTIAL THROMBOPLASTIN TIME 2020-01-30 03:40:00 [facility] (PTT) HC COMPLETE BLD COUNT 2020-01-30 03:40:00 [facility] W/AUTO DIFF B NATRIURETIC PEPTIDE 2020-01-30 03:40:00 [facility] HEMOGLOBIN, PLASMA 2020-01-30 03:40:00 [facility] POC GLUCOSE 2020-01-30 03:14:00 Abhijit Andino XR CHEST 2 VW 2020-01-30 02:36:00 Glenna [facility] spital COMPREHENSIVE METABOLIC 2020-01-30 00:35:00 [facility] CREATINE KINASE, TOTAL 2020-01-30 00:35:00 [facility] (CPK) ESTIMATED GFR 2020-01-30 00:35:00 David Abhijit [facility] spital [place] ECG PRE/POST OP 2020-01-29 16:44:29 Ajit Parnell [facility] H ospital POC GLUCOSE 2020-01-29 16:21:00 David Abhijit [facility] spital [place] CV FRACTIONAL FLOW RESERVE 2020-01-29 16:01:45 [facility] [place] ACTIVATED CLOTTING TIME 2020-01-29 15:15:00 [facility] [address] [facility] [place] ESTIMATED GFR 2020-01-29 14:04:00 DavidAbhijit awad spital [place] POC PANEL 2020-01-29 14:04:00 DavidAbhijit awad spital [place] POC GLUCOSE 2020-01-29 12:48:00 David, Abhijit [facility]ism Ho spital [place] ECG PRE/POST OP 2020-01-29 12:22:19 DavidAbhijit awad spital [place] HC COMPLETE BLD COUNT 2020-01-29 10:07:00 David, Neal [facility] W/AUTO DIFF [place] POC GLUCOSE 2019-12-12 22:20:00 [facility] TTE COMPLETE, W CONTRAST, W 2019-12-12 21:00:00 [facility] DOPPLER ([id number]) CV CTA TAVR WORKUP W 2019-12-12 19:12:39 [facility] CONTRAST AND FFR ANALYSIS POC GLUCOSE 2019-12-12 17:12:00 [facility] HC COMPLETE BLD COUNT 2019-12-12 10:13:00 [facility] W/AUTO DIFF HEMOGLOBIN A1C 2019-12-12 10:13:00 [facility] BASIC METABOLIC PANEL 2019-12-12 05:00:00 [facility] LIPID PANEL 2019-12-12 05:00:00 [facility] THYROID STIMULATING HORMONE 2019-12-12 05:00:00 [facility] T4, FREE 2019-12-12 05:00:00 [facility] ESTIMATED GFR 2019-12-12 05:00:00 [facility] POC GLUCOSE 2019-12-11 22:45:00 Ethan Barbosa spital CV SELECTIVE CORONARY 2019-12-11 21:46:51 Thierryma [facility] ANGIOGRAPHY LEFT VENTRICULOGRAPHY 2019-12-11 21:46:51 Ivette Ethan [facility] POC GLUCOSE 2019-12-11 18:26:00 Ethan Barbosa spital ECG 12-LEAD 2019-12-11 17:00:53 Ethan Barbosa spital POC GLUCOSE 2019-12-11 16:33:00 Ethan Barbosa spital Plan of Care Planned Activity Planned Date Details Comments Source Future Scheduled Test 65+ PNEUMOCOCCAL Me [facility] VACCINE (1 of 2 - PPSV23) [code = 65+ PNEUMOCOCCAL VACCINE (1 of 2 - PPSV23)] Future Scheduled Test DIABETES: RETINAL EYE [facility] EXAM [code = DIABETES: RETINAL EYE EXAM] Future Scheduled Test DIABETIC FOOT EXAM [facility] [code = DIABETIC FOOT EXAM] Future Scheduled Test URINE MICROALBUMIN [facility] [code = URINE MICROALBUMIN] Future Scheduled Test COVID-19 VACCINE (1) [facility] [code = COVID-19 VACCINE (1)] Future Scheduled Test Hepatitis C screening [facility] (procedure) [code = 410579111] Future Scheduled Test COLONOSCOPY SCREENING [facility] [code = COLONOSCOPY SCREENING] Future Scheduled Test SHINGLES VACCINES (#1) [facility] [code = SHINGLES VACCINES (#1)] Future Scheduled Test Screening for malignant [facility] neoplasm of lung (procedure) [code = 603910663] Future Scheduled Test INFLUENZA VACCINE [code [facility] = INFLUENZA VACCINE] Encounters Start End Encounter Admission Attending Care Care Encounter Source Date/Time Date/Time Type Type Clinicians Facility Department ID 2020-03-04 2020-03-04 Travel 1.2.840.1 [id number] Methodi 00:00:00 00:00:[address] 3.430.2.7 0.2.7.3.698 Ho spita .3.613928 084.8 l .8 2020-03-01 2020-03-01 Lab [facility], 1.2.840.1 [id number] Methodi 11:53:32 11:58:[address] [place] 3.430.2.7 Hospit a [place] .3.500086 l .8 2020-03-01 2020-03-01 [facility], 1.2.840.1 [id number] Methodi 10:35:53 11:46:12 plinary Otis 11550.1.[address] Visit Monte[place] 3.430.2.7 Hospit a [place] .3.319218 l .8 2020-03-01 2020-03-01 Outpatient [facility] [id number] [place] 00:00:00 00:00:00 OTIS [address] 2020-03-01 2020-03-01 Outpatient [facility] [id number] [address] [place] 00:00:00 00:00:00 OTIS [address] 2020-03-01 2020-03-01 Travel 1.2.840.1 [id number] Methodi 00:00:00 00:00:[address] 3.430.2.7 0.2.7.3.698 Ho spita .3.943382 084.8 l .8 2020-03-01 2020-03-01 Outpatient [facility] [id number] [address] [place] 00:00:00 00:00:00 OTIS [address] 2020-02-07 2020-02-07 Travel 1.2.840.1 1.2.109.019 [id number] Methodi 00:00:00 00:00:[address] 3.430.2.7 0.2.7.3.698 Ho spita .3.350702 084.8 l .8 2020-02-07 2020-02-07 Orders Linda, 1.2.840.1 [id number] Methodi 00:00:00 00:00:00 Only Leanne 33489.1.[address] 3.430.2.7 Hospit a .3.591312 l .8 2020-02-02 2020-02-02 Refill [facility] [address], 1.2.840.1 [id number] Methodi 00:00:00 00:00:[address] [place] 3.430.2.7 Hospit a .3.948022 l .8 2020-01-29 2020-02-[address] [facility], 1.2.840.1 [id number] Methodi 06:38:00 11:11:00 Encounter Abhijit 78644.1.[address] [place] 3.430.2.7 Hospit a .3.054263 l .8 2020-01-29 2020-02-01 [facility] [id number] [place] [address] 00:00:00 00:00:00 ABHIJIT [address] 2020-01-31 2020-01-31 Surgery [facility], 1.2.840.1 [id number] Methodi 17:05:00 20:00:[address] Chris 3.430.2.7 Hospit a .3.850857 l .8 2020-01-31 2020-01-31 Anesthesia Pablo Jinajanelle V. 1.2.840.1 [id number] Methodi 17:34:00 19:15:00 Event Mohan Conner 24031.1.[address] 3.430.2.7 Hospit a .3.667158 l .8 2020-01-29 2020-01-29 Surgery [facility] [address], 1.2.840.1 [id number] Methodi 09:00:00 10:00:[address] [place] 3.430.2.7 Hospit a .3.153768 l .8 2020-01-29 2020-01-[facility] 1.2.840.1 [id number] Methodi 00:00:00 00:00:00 ion Unknown 35532.1.[address] 3.430.2.7 Hospit a .3.821614 l .8 2020-01-29 2020-01-29 Travel 1.2.840.1 1.2.449.893 [id number] Methodi 00:00:00 00:00:[address] 3.430.2.7 0.2.7.3.698 Ho spita .3.522128 084.8 l .8 2020-01-26 2020-01-26 Laboratory Only, [facility] 1.2.840.114 [id number] 10:57:30 11:12:30 Only Test [place] 350.1.13.10 [place] 4.2.7.2.686 [place] [id number] 2020-01-26 2020-01-26 Documentat Provider, 1.2.840.1 [id number] Methodi 00:00:00 00:00:00 ion Unknown 35555.1.[address] 3.430.2.7 Hospit a .3.733449 l .8 2020-01-22 2020-01-22 Travel 1.2.840.1 1.2.561.026 [id number] Methodi 00:00:00 00:00:[address] 3.430.2.7 0.2.7.3.698 Ho spita .3.111425 084.8 l .8 2020-01-19 2020-01-19 Orders Greg, 1.2.840.1 [id number] Methodi 00:00:00 00:00:00 Only Shayna 06766.1.[address] 3.430.2.7 Hospit a .3.394869 l .8 2020-01-03 2020-01-03 Orders David, 1.2.840.1 [id number] Methodi 00:00:00 00:00:00 Only Abhijit 87197.1.[address] [place] 3.430.2.7 Hospit a .3.542622 l .8 2020-01-02 2020-01-02 Orders Greg, 1.2.840.1 [id number] Methodi 00:00:00 00:00:00 Only Shayna 22756.1.[address] 3.430.2.7 Hospit a .3.610159 l .8 2019-12-27 2019-12-27 Telephone David, 1.2.840.1 [id number] Methodi 00:00:00 00:00:[address] [place] 3.430.2.7 Hospit a .3.753399 l .8 2019-12-11 2019-12-12 [facility] 1.2.840.1 [id number] Methodi 11:20:10 18:56:00 Encounter Jaron [place] [address] 3.430.2.7 Hospit a .[id number] l .8 2019-12-11 2019-12-12 Inpatient [facility] 021 [id number] [place] 00:00:00 00:00:00 JARON [address] 2019-12-11 2019-12-11 Surgery Attar, 1.2.840.1 [id number] Methodi 15:25:00 16:25:[address] 3.430.2.7 Hospit a .3.628265 l .8 2019-12-11 2019-12-11 Travel 1.2.840.1 [id number] [id number] Methodi 00:00:00 00:00:[address] 3.430.2.7 0.2.7.3.698 Ho spita .3.613496 084.8 l .8 2019-06-28 2019-06-28 [facility]patient [facility] [id number] 852 [place] 00:00:00 00:00:00 [facility] [address] 2019-06-28 2019-06-28 Outpatient ATTAR, [facility] [id number] 231 [place] 00:00:00 00:00:00 ETHAN 753 Vicky bhakta 2019-03-01 2019-03-01 Outpatient JONELLE CUETO [facility] [id number] 09:20:07 09:20:07 PETRA awad Results Test Description Test Time Test Comments Results Result Comments Source ECG 12 lead 2020-03-01 17:01:39 Test Item Value Reference Range Interpretation Comme nts Ventricular rate (test code = 253) Atrial rate (test code = 255) UT interval (test code = 266) QRSD interval (test code = 260) QT interval (test code = 264) QTC interval (test code = 265) P axis 1 (test code = 267) QRS axis 1 (test code = 268) T wave axis (test code = 270) EKG impression (test code = 273) [facility] invasive peripheral vascular [id number] 22:17:52 COSURGEONS:1. Otis Champion2. Guerrero Luna MD ASSISTING PHYSICIANS: 1. Abhijit Andino MD PROCEDURES:- Diagnostic left heart catheterization- TAVR with 26-mm Vallecillo S3 Ultra- Ascending aortogram-Descending abdominal aortogram- Insertion of temporary pacemaker- Placement of Proglide sutures to close femoral artery access site COMPLICATIONS:None. ESTIMATED BLOOD LOSS:300 mL. BLOOD PRODUCTS;None.IMPLANTS:A26-mm Vallecillo Keli S3 Ultra. ASSISTANTS:MDDr. Ayesha Rodarte PROCEDURE IN DETAIL:The patient was taken to the hybrid operating room. While anesthesia was managing the airway, the team held its customary image review and briefing, and reassessment of asa'carsarmiut valve and aortic root measurements to assure compatibility of the selected valve with the patient's anatomy. Following the briefing, the patient was prepped and draped in the usual fashion. Both groins wereanesthetized with 1% lidocaine. The left femoral artery was accessed with a micropuncture needle and a 6-Chilean sheath was placed. The right femoral vein was accessed as well. A 25-cm long 9-Chilean sheath was placed. Through this sheath, a temporary pacemaker was placed in the right ventricle.The pacer was successfully tested and secured in place. Following placement of the pacemaker, attention was turned to the left femoral arterial sheath. Through this sheath, a 4-Chilean diagnostic internal ma mmary artery catheter was advanced over a Glidewire to the descending aorta. The Glidewire was pulled back and the catheter was then pulled back to the aortic bifurcation. The Glidewire was then advanced down the right iliac to the right femoral artery The IM catheter was advanced over the wire. Theglidewire was then removed and a 0.018 inch Upper [place] Plus wire was advanced and the catheter was withdrawn. The proximal portion of the wire was placed in its protective hoop. Then, attention was turned to the right groin. After a small incision and spread were made, the groin was punctured with a micropuncture needle using the Upper [place] Plus wire as a fluoroscopic target. The micropuncture wire was then exchanged for the micropuncture sheath. A contrast injection was performed through the micropuncture sheath to confirm the puncture site to be above the common femoral artery bifurcation and below the inferior epigastric artery. An 0.035 J-wire was then introduced through the micropuncture sheath and the track was dilated with a 9-Fr. Dilator. The dilator was then exchanged for a Proglide suture which was deployed to pre-close the vessel. The Proglide suture was taped appropriately into place and heparin was given by anesthesia. Then, through the Proglide device, a 0.035 inch J- wire was placed and was followed by dilation with an Vallecillo dilator. An Amplatz super-stiff wire was then advanced to the proximal descending aorta through the Vallecillo dilator. Subsequently, the dilator was takenout over the wire and a 14-Chilean Vallecillo E-sheath was placed in the femoral artery. All sheaths were sewn into place. Next, through the left femoral artery sheath, a 5 Fr marker pigtail was advanced to the basal portion of the non-coronary cusp. An ascending aortogram was performed in the co-planar angle determined on the TAVR planning CT. Attention was then turned to the E sheath. Through thissheath, a 6-Chilean Amplatz AL1 catheter was advanced over a J-wire to the aortic root. A 0.035 inchstraight wire was then used to cross the asa'carsarmiut aortic valve and the Amplatz catheter was placed in the left ventricle. The catheter was then exchanged over a 0.035 inch J-wire for a 6-Chilean angled pigtail catheter and the diagnostic left heart catheterization was performed. This revealed LV pressure 189/22 , aortic pressure 157/78, mean gradient 29, peak gradient 32. Through the catheter, an Safari small wire was placed with its curve at the LV apex and the tip pointing to the LV outflow tract.The catheter was then removed and was exchanged for a 26 -mm S3 Ultra filled with nominal volume. The balloon and valve were advanced over the wire and the valve was mounted on the balloon in the descending abdominal aorta. The catheter was then flexed and advanced around the aortic arch. The valve was placed across the asa'carsarmiut aortic valve and with rapid pacing, a test injection was performed. The position was adjusted and the patient allowed to recover. We subsequently performed a second injection and with rapid pacing, deployed the valve in a 80/20 position. Balloon inflation lasted for 5 seconds. The pigtail was withdrawn during this period. The balloon was deflated and subsequently removed. A pigtail catheter was placed over the Safari small wire and revealed LV pressure 163/32, aortic pressure 163/69, mean gradient 0, peak gradient 0. The catheter was then pulled back to the ascending aorta and an ascending aortogram was performed which revealed trace aortic regurgitation. The valve was then checked echocardiographically. Echo confirmed aortic regurgitation to be trace in severity. Protamine was then administered by anesthesia. The catheter was then removed over a wire and theEdwards sheath was removed over its dilator. The Proglide sutures were cinched into place and pressure was held until hemostasis was satisfactory. No additional Proglide sutures were required. The pigtail catheter was pulled back to the descending abdominal aorta and a descending abdominal aortogram was performed. This revealed the closure site to be intact. The left femoral artery sheath was then removed using 1 Proglide device. The pacemaker and the 9-Chilean venous sheath were removed and manual pressure was held till hemostasis was achieved. The patient was then awakened and taken back to the recovery room.[facility] [id number] 22:17:51COSURGEONS:1. Otis Champion2. Guerrero Luna MD ASSISTING PHYSICIANS: 1. Abhijit Andino MD PROCEDURES:- Diagnostic left heart catheterization- TAVR with 26-mm Vallecillo S3 Ultra- Ascending aortogram- Descending abdominal aortogram- Insertion of temporary pacemaker- Placement of Proglide sutures to close femoral artery access site COMPLICATIONS:None. ESTIMATED BLOOD LOSS:300 mL. BLOOD PRODUCTS;None.IMPLANTS:A26-mm Vallecillo Keli S3 Ultra. ASSISTANTS:MDDr. Ayesha Rodarte PROCEDURE IN DETAIL:The patient was taken to the hybrid operating room. While anesthesia was managing the airway, the team held its customary image review and briefing, and reassessment of asa'carsarmiut valveand aortic root measurements to assure compatibility of the selected valve with the patient's anatomy. Following the briefing, the patient was prepped and draped in the usual fashion. Both groins wereanesthetized with 1% lidocaine. The left femoral artery was accessed with a micropuncture needle and a 6-Chilean sheath was placed. The right femoral vein was accessed as well. A 25-cm long 9-Chilean sheath was placed. Through this sheath, a temporary pacemaker was placed in the right ventricle.The pacer was successfully tested and secured in place. Following placement of the pacemaker, attention was turned to the left femoral arterial sheath. Through this sheath, a 4-Chilean diagnostic internal mammary artery catheter was advanced over a Glidewire to the descending aorta. The Glidewire was pulled back and the catheter was then pulled back to the aortic bifurcation. The Glidewire was then advanced down the right iliac to the right femoral artery The IM catheter was advanced over the wire. Theglidewire was then removed and a 0.018 inch Upper [place] Plus wire was advanced and the catheter was withdrawn. The proximal portion of the wire was placed in its protective hoop. Then, attention was turned to the right groin. After a small incision and spread were made, the groin was punctured with a micropuncture needle using the Upper [place] Plus wire as a fluoroscopic target. The micropuncture wire was then exchanged for the micropuncture sheath. A contrast injection was performed through the micropu ncture sheath to confirm the puncture site to be above the common femoral artery bifurcation and below the inferior epigastric artery. An 0.035 J-wire was then introduced through the micropuncture sheath and the track was dilated with a 9- Fr. Dilator. The dilator was then exchanged for a Proglide suture which was deployed to pre-close the vessel. The Proglide suture was taped appropriately into place and heparin was given by anesthesia. Then, through the Proglide device, a 0.035 inch J- wire was placed and was followed by dilation with an Vallecillo dilator. An Amplatz super-stiff wire was then advanced to the proximal descending aorta through the Vallecillo dilator. Subsequently, the dilator was takenout over the wire and a 14-Chilean Vallecillo E-sheath was placed in the femoral artery. All sheaths were sewn into place. Next, through the left femoral artery sheath, a 5 Fr marker pigtail was advanced to the basal portion of the non-coronary cusp. An ascending aortogram was performed in the co-planar angle determined on the TAVR planning CT. Attention was then turned to the E sheath. Through thissheath, a 6-Chilean Amplatz AL1 catheter was advanced over a J-wire to the aortic root. A 0.035 inchstraight wire was then used to cross the asa'carsarmiut aortic valve and the Amplatz catheter was placed in the left ventricle. The catheter was then exchanged over a 0.035 inch J-wire for a 6-Chilean angled pigtail catheter and the diagnostic left heart catheterization was performed. This revealed LV pressure 189/22 , aortic pressure 157/78, mean gradient 29, peak gradient 32. Through the catheter, an Safari small wire was placed with its curve at the LV apex and the tip pointing to the LV outflow tract.The catheter was then removed and was exchanged for a 26 -mm S3 Ultra filled with nominal volume. The balloon and valve were advanced over the wire and the valve was mounted on the balloon in the descending abdominal aorta. The catheter was then flexed and advanced around the aortic arch. The valve was placed across the asa'carsarmiut aortic valve and with rapid pacing, a test injection was performed. The position was adjusted and the patient allowed to recover. We subsequently performed a second injection and with rapid pacing, deployed the valve in a 80/20 position. Balloon inflation lasted for 5 seconds. The pigtail was withdrawn during this period. The balloon was deflated and subsequently wilver maria elena. A pigtail catheter was placed over the Safari small wire and revealed LV pressure 163/32, aortic pressure 163/69, mean gradient 0, peak gradient 0. The catheter was then pulled back to the ascending aorta and an ascending aortogram was performed which revealed trace aortic regurgitation. The valve was then checked echocardiographically. Echo confirmed aortic regurgitation to be trace in severity. Protamine was then administered by anesthesia. The catheter was then removed over a wire and theEdwards sheath was removed over its dilator. The Proglide sutures were cinched into place and pressure was held until hemostasis was satisfactory. No additional Proglide sutures were required. The pigtail catheter was pulled back to the descending abdominal aorta and a descending abdominal aortogram was performed. This revealed the closure site to be intact. The left femoral artery sheath was then removed using 1 Proglide device. The pacemaker and the 9-Chilean venous sheath were removed and manual pressure was held till hemostasis was achieved. The patient was then awakened and taken back to the recovery room.[facility] lab procedure 2020-02-01 22:17:50COSURGEONS:1. Otis Champion2. Guerrero Luna MD ASSISTING PHYSICIANS: 1. Abhijit Andino MD PROCEDURES:- Diagnostic left heart catheterization- TAVR with 26-mm Vallecillo S3 Ultra- Ascending aortogram- Descending abdominal aortogram- Insertion of temporary pacemaker- Placement of Proglide sutures to close femoral artery access site COMPLICATIONS:None. ESTIMATED BLOOD LOSS:300 mL. BLOOD PRODUCTS;None.IMPLANTS:A26-mm Vallecillo Keli S3 Ultra. ASSISTANTS:Ian Rodarte. Ayesha Ko PROCEDURE IN DETAIL:The patient was taken to the hybrid operating room. While anesthesia was managing the airway, the team held its customary image review and briefing, and reassessment of asa'carsarmiut valveand aortic root measurements to assure compatibility of the selected valve with the patient's anatomy. Following the briefing, the patient was prepped and draped in the usual fashion. Both groins wereanesthetized with 1% lidocaine. The left femoral artery was accessed with a micropuncture needle and a 6-Chilean sheath was placed. The right femoral vein was accessed as well. A 25-cm long 9-Chilean sheath was placed. Through this sheath, a temporary pacemaker was placed in the right ventricle.The pacer was successfully tested and secured in place. Following placement of the pacemaker, attention was turned to the left femoral arterial sheath. Through this sheath, a 4-Chilean diagnostic internal mammary artery catheter was advanced over a Glidewire to the descending aorta. The Glidewire was pulled back and the catheter was then pulled back to the aortic bifurcation. The Glidewire was then advanced down the right iliac to the right femoral artery The IM catheter was advanced over the wire. Theglidewire was then removed and a 0.018 inch Upper Matt[place] Plus wire was advanced and the catheter was withdrawn. The proximal portion of the wire was placed in its protective hoop. Then, attention was turned to the right groin. After a small incision and spread were made, the groin was punctured with a micropuncture needle using the Upper Matt[place] Plus wire as a fluoroscopic target. The micropuncture wire was then exchanged for the micropuncture sheath. A contrast injection was performed through the micropu ncture sheath to confirm the puncture site to be above the common femoral artery bifurcation and below the inferior epigastric artery. An 0.035 J-wire was then introduced through the micropuncture sheath and the track was dilated with a 9- Fr. Dilator. The dilator was then exchanged for a Proglide suture which was deployed to pre-close the vessel. The Proglide suture was taped appropriately into place and heparin was given by anesthesia. Then, through the Proglide device, a 0.035 inch J- wire was placed and was followed by dilation with an Vallecillo dilator. An Amplatz super-stiff wire was then advanced to the proximal descending aorta through the Vallecillo dilator. Subsequently, the dilator was takenout over the wire and a 14-Chilean Vallecillo E-sheath was placed in the femoral artery. All sheaths were sewn into place. Next, through the left femoral artery sheath, a 5 Fr marker pigtail was advanced to the basal portion of the non-coronary cusp. An ascending aortogram was performed in the co-planar angle determined on the TAVR planning CT. Attention was then turned to the E sheath. Through thissheath, a 6-Chilean Amplatz AL1 catheter was advanced over a J-wire to the aortic root. A 0.035 inchstraight wire was then used to cross the asa'carsarmiut aortic valve and the Amplatz catheter was placed in the left ventricle. The catheter was then exchanged over a 0.035 inch J-wire for a 6-Chilean angled pigtail catheter and the diagnostic left heart catheterization was performed. This revealed LV pressure 189/22 , aortic pressure 157/78, mean gradient 29, peak gradient 32. Through the catheter, an Safari small wire was placed with its curve at the LV apex and the tip pointing to the LV outflow tract.The catheter was then removed and was exchanged for a 26 -mm S3 Ultra filled with nominal volume. The balloon and valve were advanced over the wire and the valve was mounted on the balloon in the descending abdominal aorta. The catheter was then flexed and advanced around the aortic arch. The valve was placed across the asa'carsarmiut aortic valve and with rapid pacing, a test injection was performed. The position was adjusted and the patient allowed to recover. We subsequently performed a second injection and with rapid pacing, deployed the valve in a 80/20 position. Balloon inflation lasted for 5 seconds. The pigtail was withdrawn during this period. The balloon was deflated and subsequently wilver maria elena. A pigtail catheter was placed over the Safari small wire and revealed LV pressure 163/32, aortic pressure 163/69, mean gradient 0, peak gradient 0. The catheter was then pulled back to the ascending aorta and an ascending aortogram was performed which revealed trace aortic regurgitation. The valve was then checked echocardiographically. Echo confirmed aortic regurgitation to be trace in severity. Protamine was then administered by anesthesia. The catheter was then removed over a wire and theEdwards sheath was removed over its dilator. The Proglide sutures were cinched into place and pressure was held until hemostasis was satisfactory. No additional Proglide sutures were required. The pigtail catheter was pulled back to the descending abdominal aorta and a descending abdominal aortogram was performed. This revealed the closure site to be intact. The left femoral artery sheath was then removed using 1 Proglide device. The pacemaker and the 9-Chilean venous sheath were removed and manual pressure was held till hemostasis was achieved. The patient was then awakened and taken back to the recovery room.[facility] Pre/Post Op TIMED at 0400 For 3 [id number] 16:27:42 Test Item Value Reference Range Interpretation Comments Ventricular rate (test code = 253) Atrial rate (test code = 255) UT interval (test code = 266) QRSD interval (test code = 260) QT interval (test code = 264) QTC interval (test code = 265) P axis 1 (test code = 267) QRS axis 1 (test code = 268) T wave axis (test code = 270) EKG impression (test code -Normal sinus = 273) rhythm-Electronicall y Signed By Dmitry Amaya MD ([id number]) on 02/01/2020 11:27:40 AM [facility], (w Contrast, Strain and 3D if needed)2020-02-01 14:31:00 Echocardiography Report [id number] [address] Pat.Name: ANGELA WEBB Pat.ID: [id number] .Date: 02/01/2020 Refer.MD: ABHIJIT ANDINO MD Exam Time: 4:30:00 AM Study Type:Routine Echo Height: 72in Weight: 269lb BSA: 2.42 m2 Age: 3 1955,64Y Sex: MALE BP: 147/74 HR: 68 bpm Sonogrphr: Nicci Aguilar, RCS, RVT Pat. Stat.:Inpatient Room: [facility] CPT - 4: 60699, 23193, 67084 Study Status:Final Echo Event ID:[id number] Order ID: [id number] Reason for Study:Prosthetic valve-post op baseline evalHistory / Clinical:Coronary Artery Disease, Diabetes, Hyperlipidemia,Hypertension, MurmurProcedures: 2D Echo, 2D Echo, Colorflow Doppler, PortableRace: C SUMMARY: LV size is normal. LV EF is normal. Estimated EF is 60-64%.RV size is normal. RV systolic function is normal.Prosthetic aortic valve. Normal prosthetic valve velocity andgradient. FINDING S: LV: LV size is normal. There is moderate concentric LV hypertrophy. LV EF is normal. Overall wall motion is normal. Estimated EF is 60-64%.RV: RV size is normal. RV systolic function is normal.LA: LA size is normal.RA: RA size is normal.AO: Aortic root diameter is not well visualized.LIAM: No pericardial effusion.AV: Prosthetic aortic valve. Normal prosthetic valve velocity and gradient.MV:No structural MV abnormalities noted.PV: No structural PV abnormalities noted. A trace of pulmonic regurgitation. TV: No structural TV abnormalities noted.Other: Insufficient TRjet to estimate PA systolic pressure. MEASUREMENTS: 2DParasternal [place] Ao An 1.9 cm LVPWd 1.4 cm Ao Rtd 3.4 cm Index 1.4 cm/m2 LA Ds 4.8 cm IVSd 1.2 cm RWT 0.49 LVIDd 5.8 cm Index 2.4 cm/m2 LV Mass 326 g (122-174)* LVIDs 3.5 cm LVM Index 135 g/m2 LV%fs 40 % LA Sng Plane LA Area 22 cm2 (8.8-23.4) LA Vol 78 ml Index 32 ml/m2 LA LngAx 5.4 cm LVOT For Flow LVOT 1.9 cm LVOT Area 2.8 cm2 DOPPLERAV For Flow/SARAH AV pkVel 265 cm/s (100-170)* AV TVI 49 cm AV mnVel 170 cm/s AVpkAcRt 3679 cm/s2 AV pkPG 28 mmHg AV DeRt 917 cm/s2 AV Mean G 14 mmHg AV Area 1.3 cm2 (3-5)* AV ET 289 msec AV AC 79 msec (83-118)* AV AC/ET 0.27 Aortic Valve AV DI 0.47 LVOT For Flow LVOT TVI 23 cm LVOT CI 1.7 l/m/m2 LVOT SV 65 ml LVOTpkPG 3.9 mmHg LVOTpkVel 99 cm/s LVOTmnPG 2.2 mmHg LVOT CO 4.1 l/min HR 63 bpm LVOT SVi 27 ml/m2 Signed 02/01/2020 09:31 Verenice Dixno M.D.Interface, Radiology Results In - 02/01/2020 9:32 AM CDT Echocardiography Report [address] [place] [address] Pat.Name: ANGELA WEBB Pat.ID: [id number] .Date: 02/01/2020 Refer.MD: ABHIJIT ANDINO MD Exam Time: 4:30:00 AM Study Type:Routine Echo Height: 72in Weight: 269lb BSA: 2.42 m2 Age: 3 1955,64Y Sex: MALE BP: 147/74 HR: 68 bpm Sonogrphr: Nicci Aguilar, RCS, RVT Pat. Stat.:Inpatient Room: [id number] CPT - 4: 32561, 27611, 05475 Study Status:Final Echo Event ID:[id number] Order ID: [id number] Reason for Study:Prosthetic valve-post op baseline evalHistory / Clinical:Coronary Artery Disease, Diabetes, Hyperlipidemia,Hypertension, MurmurProcedures: 2D Echo, 2D Echo, Colorflow Doppler, PortableRace: C SUMMARY: LV size is normal. LV EF is normal. Estimated EF is 60-64%.RV size is normal. RV systolic function is normal.Prosthetic aortic valve. Normal prosthetic valve velocity andgradient. FINDINGS: LV: LV size is normal. There is moderate concentric LV hypertrophy. LV EF is normal. Overall wall motion is normal. Estimated EF is 60-64%.RV: RV size is normal. RV systolic function is normal.LA: LA size isnormal.RA: RA size is normal.AO: Aortic root diameter is not well visualized.LIAM: No pericardial effusion.AV: Prosthetic aortic valve. Normal prosthetic valve velocity and gradient.MV: No structural MV abnormalities noted.PV: No structural PV abnormalities noted. A trace of pulmonic regurgitation. TV: No structural TV abnormalities noted.Other: Insufficient TR jet to estimate PA systolic pressure. MEASURE MENTS: 2DParasternal [place] Ao An 1.9 cm LVPWd 1.4 cm Ao Rtd 3.4 cm Index 1.4 cm/m2 LA Ds 4.8 cm IVSd 1.2 cm RWT 0.49 LVIDd 5.8 cm Index 2.4 cm/m2 LV Mass 326 g (122-174)* LVIDs 3.5 cm LVM Index 135 g/m2 LV%fs 40 % LA Sng Plane LA Area 22 cm2 (8.8-23.4) LA Vol 78 ml Index 32 ml/m2 LA LngAx 5.4 cm LVOT For Flow LVOT 1.9 cm LVOT Area 2.8 cm2 DOPPLERAV For Flow/SARAH AV pkVel 265 cm/s (100-170)* AV TVI 49 cm AV mnVel 170 cm/s AVpkAcRt 3679 cm/s2 AVpkPG 28 mmHg AV DeRt 917 cm/s2 AV Mean G 14 mmHg AV Area 1.3 cm2 (3-5)* AV ET 289 msec AV AC 79 msec (83-118)* AV AC/ET 0.27 Aortic Valve AV DI 0.47 LVOT For Flow LVOT TVI 23 cm LVOT CI 1.7 l/m/m2 LVOT SV 65 ml LVOTpkPG 3.9 mmHg LVOTpkVel 99 cm/s LVOTmnPG 2.2 mmHg LVOT CO 4.1 l/min HR 63 bpm LVOT SVi 27 ml/m2 Signed 02/01/2020 09:31 Verenice Dixon M.D. [facility] [id number] 01:05:00 Test Item Value Reference Range Interpretation Comments Product name (test code Apheresis Red Cell = 25) AS3 #1 LR Unit number (test code = [id number]) Product code (test code G5060S19 = 3092) Dispense status (test Returned to not code = 24) transfused Blood expiration date (test code = 302) Blood type code (test code = 308) Blood type (test code = O POSITIVE 1314) Compatibility (test code Compatible = 6400) [facility] [id number] 23:28:05Zak Shah MD 01/31/2020 6:34 PMProcedure Performed: MARIZOL Start Time: End Time: Preanesthesia Checklist:Patient identified, IV assessed, risks and benefits discussed, monitors and equipment assessed, procedure being performed at surgeon's request, anesthesia consent obtained. General Procedure InformationDiagnostic Indications for Echo: assessment of ascending aorta, assessment of surgical repair, defect repair evaluation, hemodynamic monitoring and suspected pericardial effu sionPhysician Requesting Echo: Guerrero Luna MDLocation performed: ORIntubatedBite blocknot placedHeart visualizedProbe Insertion: EasyProbe Type: MultiplaneModalities: 2D only, color flow mapping and continuous wave Doppler Echocardiographic and Doppler Measurements Ventricles Right Ventricle:Cavity size dilated. Left Ventricle:Cavity size dilated. Valves Aortic Valve:Annulus calcified. Stenosis severe. Anesthesia InformationPerformed PersonallyAnesthesiologist: Zak Shah MD Surgeon: Guerrero Luna MD Echocardiogram Comments: Preprocedure MARIZOL -severe aortic stenosis, nl LV RV function, other valves normal, PFO present, trivial effusion Post procedure MARIZOL - valve well seated, No PVL, NO effusion at end of case nl LV RV functionPerformed by: Zak Shah V. MDAuthorized by: Zak Shah V. [facility]2020-10-14 23:16:23Zak Shah MD 01/31/2020 6:17 PMAirwayPerformed by: Zak Shah V. MDAuthorized by: Zak Shah MD Location: ORUrgency: ElectiveDifficult Airway: No Anesthesiologist: Zak Shah V., MDResident/WHISKEY PROOF READER/AA: Ethan Galindo, MDPerformed by: anesthesiologistPre oxygenated with 100% O2: Yes C-spine Precautions Maintained Throughout: Yes Mask Ventilation: Difficult maskFinal Airway Type: Endotracheal airwayFinal Endotracheal Airway: ETTCuffed: Yes Technique Used: Direct laryngoscopyDevices/Methods Used in Placement: Intubating styletBlade Type: MillerLaryngoscope Blade/Videolaryngoscope Blade Size: 2ETT Size (mm): 8.0Measured from: GumsPlacement Verified by: CO2 detection and direct visualization Laryngoscopic view: Grade I - full view of glottisRapid Sequence Induction (RSI): No Number of Attempts at Approach: [address] [place] [address] Arterial [id number] 23:15:46Zak Shah MD 01/31/2020 6:16 PMArterial linePerformed by: Zak Shah V., MDAuthorized by: Zak Shah MD Patient Location: ORStaff: Anesthesiologist: Zak Shah MD Resident/WHISKEY PROOF READER/AA: Ethan Galindo MD Performed by: Resident/WHISKEY PROOF READER/AAPre-procedure: patient identified, IV checked, site and side verified, risks and benefits discussed, procedure verified, surgical consent complete, patient position confirmed, monitors and equipment checked, pre-op evaluation complete and timeout performed prior to procedure MSBT: antiseptic used, all elements of maximal sterile barrier technique followed, hand hygiene performed, cap/gown used by other personnel andsolutions labeled Indications: Indications: multiple ABGs, respiratory failure and hemodynamic monitoring Anesthesia: Anesthesia: Local infiltrationProcedure Details: Arterial Line placement:Placed pre-induction Line placement site: RadialLine placement side: Right Arterial line gauge:20 G Ultrasound guidance used: Yes Post-procedure: Post-procedure: Sterile dressing applied Post procedure circulation, sensation, movement: Normal Patient tolerance: Patient tolerated the proc edure well with no immediate complicationsLas Palmas Medical CenterArterial blood gas, [id number] 23:08:44 Test Item Value Reference Range Interpretation Comments pH, arterial (test code 7.35-7.45 = 2744-1) pCO2, arterial (test See_Comment H [Autom ated message] code = 2018-11) The system [facility] generated this result transmitted ref erence range: 35 - 45 mmHg. The reference r john was not used to interpret this result as normal/abnor mal. pO2, arterial (test code See_Comment H [A utomated message] = 2703-7) The system [employer] generated this result transmitted ref erence range: 80 - 90 mmHg. The reference r john was not used to interpret this result as normal/abnor mal. Temperature, Celsius Degrees C (test code = 8310-5) O2 saturation, arterial 100 % 95-100 (test code = 2708-6) pH, arterial corrected (test code = 44853-0) pCO2, arterial corrected mmHg (test code = 90734-8) pO2, arterial corrected mmHg (test code = 17733-4) Base excess, arterial See_Comment H [Auto mated message] (test code = 1925-7) The s tem which generated this result transmitted ref erence range: -2 - 2 m Eq/L. The reference r john was not used to interpret this result as normal/abnor mal. Lab Interpretation (test Abnormal code = 30882-8) [facility] CenterGlucose level, [id number] 23:08:44 Test Item Value Reference Range Interpretation Comments Glucose, syringe (test code = 124 mg/dL 65-99 H 2345-7) Lab Interpretation (test code = Abnormal 02313-1) [facility] HospitalHemoglobin, [id number] 23:08:44 Test Item Value Reference Range Interpretation Comments Hemoglobin, syringe (test code = 13.3 g/dL 14.0-18.0 L 718-7) Lab Interpretation (test code = Abnormal 29537-2) [facility] CenterIonized calcium, [id number] 23:08:44 Test Item Value Reference Range Interpretation Comments Ionized calcium, arterial (test 1.08 mmol/L 1.11-1.32 L code = 80248-9) Lab Interpretation (test code = Abnormal 90490-6) [facility] HospitalPotassium, [id number] 23:08:44 Test Item Value Reference Range Interpretation Comments Potassium, syringe See_Comment [Automat ed message] The (test code = 2007) system [employer] generated this result tra nsmitted reference range : 3.5 - 5.0 mEq/L. The refe rence range was not used to interpret this result as normal/abnormal . [facility]odium [facility], [id number] 23:08:44 Test Item Value Reference Range Interpretation Comments Sodium, syringe (test See_Comment [Auto mated message] The code = 2947-0) system which generated this result tra nsmitted reference range : 135 - 148 mEq/L. The refe rence range was not used to interpret this result as normal/abnormal . [facility] lab [id number] 00:07:58PROCEDURE DETAILS Attending: Dr. Abhijit Andino MD Interventional Fellow: Ajit Parnell After obtaining informed consent, the patient was brought to the cardiac catheterization suite. The patient presents for iFR of LAD prior to TAVR on 01/31/20. Please see cath report from 12/11/19 for The right radial artery was located, skin was infiltrated was lidocaine. The artery was accessed using the Seldinger technique, and a 6F glidesheath was inserted. NTG and verapamil were administered intra-arterially via sheath. Angiomax was administered intravenously. A EBU 3.5 and then a XB LAD 4 guide was advanced over a Wholey wire and engaged into the LMT. A verrata wire was normalized in the left main. The verrata wire could not be navigated down the LAD, so a genevieve blue wire was advanced to the distal LAD as a david wire. The verrata wire then was able to be advanced past the mid LAD stenosis of interest. The genevieve blue was removed. The iFR was 0.87, 0.88, 0.87. However, on pull back, the ratio in the leftmain was 0.96 and thus a gradient of 0.04. This was repeated again with similar results. Thus, the lesion was hemodynamically insignificant. The guide was removed over a wholey wire. HEMOSTASIS: TR Band inflated to 13 cc of air EQUIPMENT/ANTICOAGULATION: Right Radial Guekxx4P Sheath XB LAD 4 Guide Catheter genevieve blue, verrata coronary wire Anticoagulation: Angiomax bolus and Infusion with ACT >250 sec prior to procedure CONCLUSION:- 60% stenosis of mid LAD is iFR negative PLAN: 1. ASA 81mg daily2. Continue statin3. Cardiac medical therapy and aggressive risk factor modification. 4. Admit for TAVR on 01/30 ANESTHESIAUnder my supervision, 75 mcg of fentanyl was administered intravenously formoderate sedation. Pulse oxymetry, heart rate and blood pressure were continuously measured by an independent trained observer present. I spent 60 minutes of face to face attendance with the patient during sedation. I was physically present for the critical portions of all procedures performed duringthis episode of care.[facility] YuktnkudFFBO-NeJ-0 (COVID-19) RNA [Presence] in Respiratory specimen by ANURAG with probe [id number] 21:21:25 Test Item Value Reference Range Interpretation Comments SARS-CoV-2 (COVID-19) RNA Not detected Not-Detected [Presence] in Respiratory specimen by ANURAG with probe detection (test code = 67431-2) XR Chest 2 [id number] 03:01:48Examination: XR CHEST 2 VW Clinical History: Shortness of breath Comparison: None. Technique: Frontal and lateral views of the chest were obtained. Findings:Lungs and pleural surfaces are clear. Cardio mediastinal silhouette and pulmonary vascularity are within normal limits. Bones are intact. Impression: No active cardiopulmonary disease identified. [id number] Interface, Radiology Results Incoming - 01/29/2020 10:04 PM CDT Examination: XR CHEST 2 VWClinical History: Shortness of breathComparison: None.Technique: Frontal and lateral views of the chest were obtained.Findings:Lungs and pleural surfaces are clear. Cardiomediastinalsilhouette and pulmonary vascularity are within normal limits. Bones are intact.Impression:No activecardiopulmonary disease identified.[id number] w contrast and ffr if [id number] 15:39:00 [address] [place] [address] Department Number: [phone] CTA TAVR ProtocolPat.Name: ANGELA WEBB.ID: [id number] .Date: 12/12/2019 Refer.MD: ETHAN BARBOSA MD Exam Time: 1:54:00 PM Study Type:CTA TAVR Protocol Height: 73in Weight: 268lb BSA: 2.44 m2 Age: 3 1955,64Y Sex: MALE BP: 156/76 HR: 69 bpm Nuclear Tech:PIA Chapa(N)(CT)Pat. Stat.:Inpatient CPT- 4: CTA TAVR Workup - [id number] Event ID:[id number] Order ID: [id number] for Study:Aortic Stenosis Procedures: CT Prospective (% Phases), CT Flash Mode (Diastolic Phase)Race: C SUMMARY: Technique: IV contrast was administered and sequential 0.[address] cutswere obtainedthrough the chest using the Siemens [employer] CTscanner. Post-processing and 3D reconstruction were done using [employer] workstation. Interactive image viewing and volumetricdisplay and analysis were also performed. Aortic valve Calcium Score (CACS) Result: 1750.CTA RESULTSThe patient had a recent invasive coronary angiogram on 12/08/2019 andso the coronary arteries were not assessed on this study.Pulmonary Arteries:The main pulmonary artery is mildly dilated at 3.2 cm but with noproximal thrombus identified.Left Atrial and Pulmonary Vein Dimensions:Left atrial size (A-P diameter) 4.7 cm.Left atrial volume 130 ml.Variant PV anatomy with left common pulmonary trunk measuring 25 mm Right superior PV20 mm. Right inferior PV16 mm.There is no evidence of the left atrial appendage clot.Left Ventricular Valve Morphology/Function:LV septal wall thickness 16 mm.LV end-diastolic volume 155 ml.LV end-systolic volume 62 ml.LVEF is normal at 60 %.Aortic valve is tri- leaflet with severe calcification, severe aorticstenosis (SARAH 1.0 cm2.) but no significant regurgitation.Mitral valve is normal without evidence of significant stenosis orregurgitation. Right Ventricular Function:RV end-diastolic volume 170 ml.RV end-systolic volume 92 ml.RVEF is normal at 46 %.Pericardium: No pericardium effusion orpericardial thickening.Thoracic Aortic Dimensions:No aortic aneurysm or dissection is seen.Aortic root 3.3 cm.Sinotubular junction 2.7 cm. Mid ascending thoracic aorta 3.9 cm.Distal ascending thoracicaorta 3.5 cm.Aortic arch 2.7 cm. There is normal takeoff of the great vesselsexcept for the left carotid which arises from the rightbrachiocephalic trunk as a variant. Aortic Isthmus 2.5 cm.Descendingthoracic aorta 2.5 cm.Upper abdominal Aorta: 2.2 cm with no significant atheroscleroticplaque. Celiac trunk: 7.5 mm with mild (<50%) ostial stenosis. Superior mesenteric artery: 5.5 mm with no sig nificant stenosis. Right renal artery: 5 mm with no significant stenosis. Left renal artery: 6 mm with no significant stenosis. Inferior mesenteric artery: 4.0 mm with no significant stenosis.Infrarenal aorta: 1.6 cm with mild calcified and non-calcifiedatherosclerotic plaque.TAVR ReportCalcified Aorta: MildCharacterization of Aortic Root:Major aortic annulus diameter (systole): 27 mmPerpendicularminor aortic annulus diameter (systole): 23 mmAortic annulus perimeter (systole): 80 mmAortic valve area (systole) 493 gj9Eejsl of Valsalva height left coronary (diastole): 16 mmSinus of Valsalva height right coronary (diastole): 14 mmSinus of Valsalva diameter left coronary (diastole): 31 mmSinus of Valsalva diameter non-coronary (diastole): 32 mmSinus of Valsalva diameter right (diastole): 30 mmMaximum ascending aorta diameter at 40mm above annulus (diastole): 39mmAortic Root Angulation (diastole): 55 degreesAbdominal Aortic Aneurysm: NoThoracic Aortic Aneurysm: NoCharacterization of access vessels:Right Common Iliac:Minimum lumen diameter: 10 mm Percent stenosis: None Tortuosity: No Calcification: Mild and non-circumferentialRight External Iliac: Minimum lumen diameter: 7.5 mm Percent stenosis: Mild (25-49%)Tortuosity: No Calcification: MildRight Femoral: Minimum lumen diameter: 6.5 mm Percent stenosis: None Tortuosity: No Calcification: MildLeft Common Iliac: Minimum lumen diameter: 9.0 mm Percent stenosis: None Tortuosity: No Calcification: MildLeft External Iliac: Minimum lumen diameter: 5.5 mm Percent stenosis: Mild (25-49%) Tortuosity: Mild Calcification: MildLeft Femoral: Minimum lumen d iameter: 6.5 mm Percent stenosis: None Tortuosity: No Calcification: MildAortic BifurcationLeft Lower ExtremityLeft internal iliac is a 7.0 mm artery which has mild calcified andnon-calcified atherosclerotic plaque present but with no significantstenosis.Left superficial femoral is a 6.5 mm artery which has no significant atherosclerotic plaque present.Right Lower ExtremityRight internal iliac is a 7.0 mm artery which has mild calcified andnon-calcified atherosclerotic plaque present but with no significantstenosis.Right superficial femoral is a 6.5 mm artery which has no significant atherosclerotic plaque present.CAROTID CTARight Brachiocephalic Trunk and BranchesRight Brachiocephalic trunk: a14 mm artery which has mild calcifiedatherosclerotic plaque present but with no significant stenosis.Right subclavian artery: a 11 mm artery which has mild calcifiedatherosclerotic plaque present but with no significant stenosis.Right vertebral artery: a 3.5 mm artery which has moderatenon-calcified atherosclerotic plaque present with >50% ostialstenosis. Poor contrast resolution limits optimal stenosis assessment.Right common carotid artery: a 6.0 mm artery which has mild calcifiedatherosclerotic plaque present but with no significant stenosis.Left Carotid Artery:Left common carotid artery: a 6.5 mm artery which has mild calcifiedatherosclerotic plaque present but with no significant stenosis.Left Subclavian Artery and BranchesLeft Subclavian artery: a 9 mm artery which has mild calcified andnon-calcified atherosclerotic plaque present but with no significantstenosis.Left vertebral artery: a3.5 mm artery which has no significantatherosclerotic plaque present.Non-Cardiac Findings:Punctate calcifications in the spleen consistent with oldgranulomatous disease. CONCLUSIONThe coronary arterieswere not assessed due to recent invasivecoronary angiography. The LVEF is normal at 60 %.The RVEF ismildly depressed at 46%Aortic valve is tri-leaflet with severe calcification, severe aorticstenosis (SARAH 1.0 cm2.) but no significant regurgitation.Mitral valve is normal without evidence of significant stenosis orregurgitation. Variant PV anatomy. There is no evidence of left atrial appendage thrombus.Vascular measurements as noted above.STUDY QUALITYThe study quality is fair.COMMENTSNone. FINDINGS: Signed 12/17/2019 10:39 AMOrestes. MD JuliaInterface, Radiology Results In - 12/17/2019 10:40 AM CDT Nuclear Cardiology and Cardiac CT [address] [place] [address] Department Number: [phone] CTA TAVR ProtocolPat.Name: ANGELA WEBB Pat.ID: [id number] .Date: 12/12/2019 Refer.MD: ETHAN BARBOSA MD Exam Time: 1:54:00 PM Study Type:CTA TAVR Pro tocol Height: 73in Weight: 268lb BSA: 2.44 m2 Age: 3 1955,64Y Sex: MALE BP: 156/76 HR: 69 bpm Nuclear Tech:PIA Chapa(Delmi)(CT)Pat. Stat.:Inpatient CPT - 4: CTA TAVR Workup - [id number] Event ID:[id number] Order ID: [id number] Reason for Study:Aortic Stenosis Procedures: CT Prospective (% Phases), CT Flash Mode (Diastolic Phase)Race: C -------SUMMARY: Technique: IV contrast was administered and sequential 0.[address] cutswere obtained through the chest using the Siemens [employer] CTscanner. Post-processing and 3D reconstruction were done using [employer] workstation. Interactive image viewing and volumetricdisplay and analysis were also performed. Aortic valve Calcium Score (CACS) Result: 1750.CTA RESULTSThe patient had a recent invasive coronary angiogram on 12/08/2019 andso the coronary arteries were not assessed on this study.Pulmonary Arteries:The main pulmonary artery is mildly dilated at 3.2 cm but with noproximal thrombus identified.Left Atrial and Pulmonary Vein Dimensions:Left atrial size (A-P diameter) 4.7 cm.Left atrial volume 130 ml.Variant PV anatomy with left common pulmonarytrunk measuring 25 mm Right superior PV20 mm. Right inferior PV16 mm.There is no evidence of the left atrial appendage clot.Left Ventricular Valve Morphology/Function:LV septal wall thickness 16 mm.LV end-diastolic volume 155 ml.LV end-systolic volume 62 ml.LVEF is normal at 60 %.Aortic valve is tri-leaflet with severe calcification, severe aorticstenosis (SARAH 1.0 cm2.) but no significant regurgitation.Mitral valve is normal without evidence of significant stenosis orregurgitation. Right Ventricular Function:RV end-diastolic volume 170 ml.RV end-systolic volume 92 ml.RVEF is normal at 46 %.Pericardium: No pericardium effusion or pericardial thickening.Thoracic Aortic Dimensions:No aortic aneurysm or dissection is seen.Aortic root 3.3 cm.Sinotubular junction 2.7 cm. Mid ascending thoracic aorta3.9 cm.Distal ascending thoracic aorta 3.5 cm.Aortic arch 2.7 cm. There is normal takeoff of the great vesselsexcept for the left carotid which arises from the rightbrachiocephalic trunk as a variant.Aortic Isthmus 2.5 cm.Descending thoracic aorta 2.5 cm.Upper abdominal Aorta: 2.2 cm with no significant atheroscleroticplaque. Celiac trunk: 7.5 mm with mild (<50%) ostial stenosis. Superior mesenteric artery: 5.5 mm with no significant stenosis. Right renal artery: 5 mm with no significant stenosis. Left renal artery: 6 mm with no significant stenosis. Inferior mesenteric artery: 4.0 mm with no significant stenosis.Infrarenal aorta: 1.6 cm with mild calcified and non-calcifiedatherosclerotic plaque.TAVR ReportCalcified Aorta: MildCharacterization of Aortic Root:Major aortic annulus diameter (systole): 27 mmPerpendicular minor aortic annulus diameter (systole): 23 mmAortic annulus perimeter (systole): 80 mmAortic valve area (systole) 493 md1Tnugt of Valsalva height left coronary (diastole): 16 mmSinus of Valsalva height right coronary (diastole): 14 mmSinus of Valsalva diameter left coronary (diastole): 31 mmSinus of Valsalva diameter non-coronary (diastole): 32 mmSinus of Valsalva diameter right (diastole): 30 mmMaximum ascending aorta diameter at 40mm above annulus (diastole): 39mmAortic Root Angulation(diastole): 55 degreesAbdominal Aortic Aneurysm: NoThoracic Aortic Aneurysm: NoCharacterization of access vessels:Right Common Iliac: Minimum lumen diameter: 10 mm Percent stenosis: None Tortuosity: No Calcification: Mild and non-circumferentialRight External Iliac: Minimum lumen diameter: 7.5 mm Percent stenosis: Mild (25-49%) Tortuosity: No Calcification: MildRight Femoral: Minimum lumen diameter: 6.5 mm Percent stenosis: None Tortuosity: No Calcification: MildLeft Common Iliac: Minimumlumen diameter: 9.0 mm Percent stenosis: None Tortuosity: No Calcification: MildLeft External Iliac: Minimum lumen diameter: 5.5 mm Percent stenosis: Mild (25-49%) Tortuosity: Mild Calcification:MildLeft Femoral: Minimum lumen diameter: 6.5 mm Percent stenosis: None Tortuosity: No Calcification: MildAortic BifurcationLeft Lower ExtremityLeft internal iliac is a 7.0 mm artery which has mild calcified andnon-calcified atherosclerotic plaque present but with no significantstenosis.Left superficial femoral is a 6.5 mm artery which has no significant atherosclerotic plaque present.Right Lower E xtremityRight internal iliac is a 7.0 mm artery which has mild calcified andnon- calcified atherosclerotic plaque present but with no significantstenosis.Right superficial femoral is a 6.5 mm artery which has no significant atherosclerotic plaque present.CAROTID CTARight Brachiocephalic Trunk and BranchesRight Brachiocephalic trunk: a 14 mm artery which has mild calcifiedatherosclerotic plaque presentbut with no significant stenosis.Right subclavian artery: a 11 mm artery which has mild calcifiedatherosclerotic plaque present but with no significant stenosis.Right vertebral artery: a 3.5 mm artery which has moderatenon-calcified atherosclerotic plaque present with >50% ostialstenosis. Poor contrast resolution limits optimal stenosis assessment.Right common carotid artery: a 6.0 mm artery whichhas mild calcifiedatherosclerotic plaque present but with no significant stenosis.Left Carotid Artery:Left common carotid artery: a 6.5 mm artery which has mild calcifiedatherosclerotic plaque present but with no significant stenosis.Left Subclavian Artery and BranchesLeft Subclavian artery: a 9 mm artery which has mild calcified andnon-calcified atherosclerotic plaque present but with no significantstenosis.Left vertebral artery: a 3.5 mm artery which has no significantatherosclerotic plaque present.Non-Cardiac Findings:Punctate calcifications in the spleen consistent with oldgranulomatous disease. CONCLUSIONThe coronary arteries were not assessed due to recent invasivecoronary angiography. The LVEF is normal at 60 %.The RVEF is mildly depressed at 46%Aortic valve is tri-leaflet with severe calcification, severe aorticstenosis (SARAH 1.0 cm2.) but no significant regurgitation.Mitral valve is normal without evidence of significant stenosis orregurgitation. Variant PV anatomy. There is no evidenceof left atrial appendage thrombus.Vascular measurements as noted above.STUDY QUALITYThe study quality is fair.COMMENTSNone. FINDINGS: Signed 12/17/2019 10:39 Beth Dum[facility]Trans[facility] Complete, (w Contrast, Strain and 3D if needed)2019-12-12 22:11:00 Echocardiography Report [address] [place] [address] Pat.Name: ANGELA WEBB Pat.ID: [id number] .Date: 12/12/2019 Refer.MD: JARON DUMAS MD Exam Time: 3:14:00 PM Study Type:Routine Echo Height: 72in Weight: 268lb BSA: 2.41 m2 Age: 3 1955,64Y Sex: MALE BP: 137/6871 HR: 71 bpm Sonogrphr: HEATH Torres Pat. Stat.:Inpatient Room: [facility] 2004- Study Status:Final Echo Event ID:[id number] Order ID: [id number] Reason for Study:Aortic [place] Valvular Stenosis - Routinesurveillance (<1 y) of moderate or severe valvular stenosis without achange in clinical status or cardiac examASHistory / Clinical:Coronary Artery Disease, Diabetes, Hyperlipidemia,Hypertension, MurmurProcedures: 2D Echo, Colorflow Doppler, Portable, Intravenous OptisonContrastRace: C SUMMARY: Technically difficult study.LV size is normal. Normal LV function. Aortic valve not well seen but appears significantly thickened. Severeaortic valve stenosis.Diastolic dysfunction Grade I (Mild): Impaired relaxation with normalLV filling pressures. FINDINGS: LV: LV size is normal. There is mild concentric LV hypertrophy. LV EF is normal. Overall wall motion is normal. Estimated EF is 55-59%.RV: RV is not well visualized but appears normal in size with low normal function.LA: LA size is normal.RA:RA size is normal.AO: Aortic root diameter is normal.LIAM: No pericardial effusion.AV: Aortic valve not well seen but appears significantly thickened. Severe aortic valve stenosis. Estimated mean aortic valve gradient 42 mmHg with a valve area of 0.93 cm2.MV: Nostructural MV abnormalities noted.PV: Pulmonic valve not well seen.TV: No structural TV abnormalities noted.Graham: Hepatic vein pressure is normal, RA pressure < 5mmHg. Diastolic dysfunction Grade I (Mild): Impaired relaxation with normal LV filling pressures.Other: Insufficient TR jet to estimate PA systolic pressure. MEASUREME NTS: 2DParasternal [place] AoAn 2.2 cm LVPWd 1.3 cm Ao Rtd 3.2 cm Index 1.3 cm/m2 LA Ds 3.7 cm IVSd 1.2 cm RWT 0.46 LVIDd 5.8 cm Index 2.4 cm/m2 LV Mass 309 g (122-174)* LVIDs 3.6 cm LVM Index 128 g/m2 LV%fs 38% LVOT 2.3 cm LA Sng Plane LA Area 24 cm2 (8.8-23.4)* LA Vol 76 ml Index 31 ml/m2 LA LngAx 6.1 cm RA Sng Plane RA Vol 70 ml Index 29 ml/m2 RA LngAx 5.9 cm RA Area 22 cm2 (8.3- 19.5)*LVOT LVOT Area 4.2 cm2 DOPPLERAV For Flow/SARAH AV pkVel 394 cm/s (100-170)* AV AC/ET 0.44 AV mnVel 300 cm/s AV TVI 85 cm AV pkPG 62 mmHg AVpkAcRt 35038 cm/s2 AV Mean G 42 mmHg AV DeRt 1383 cm/s2 AV ET 285 msec AV AC 126 msec (83-118)*Aortic Valve AV DI 0.22 AV Area 0.93 cm2(3-5)*LVOT For Flow LVOT TVI 19 cm LVOTmnPG 1.6 mmHg LVOTpkVel 81 cm/s HR 71 bpm LVOTpkPG 2.6 mmHg LVOT LVOT SV 79 ml LVOT CO 5.6 l/min SVi 33 ml/m2 LVOT CI 2.3 l/m/m2 Signed 12/12/2019 05:11 Jennifer Garg MDInterface, Radiology Results In - 12/12/2019 5:11PM CDT Echocardiography Report [id number] [address], [address]Name: ANGELA WEBB.ID: [id number] .Date: 12/12/2019 Refer.MD: JARON DUMAS MD Exam Time: 3:14:00 PM Study Type:Routine Echo Height: 72in Weight: 268lb BSA: 2.41 m2 Age: 3 1955,64Y Sex: MALE BP: 137/6871 HR: 71 bpm Sonogrphr: Sandra Holman [facility] Pat. Stat.:Inpatient Room: WT20 Study Status:Final Echo Event ID:[id number] Order ID: [id number] Reason for Study:Aortic [place] Valvular Stenosis - Routinesurveillance (<1 y) of moderate or severe valvular stenosis without achange in clinical status or cardiac examASHistory / Clinical:Coronary Artery Disease, Diabetes, Hyperlipidemia,Hypertension, MurmurProcedures: 2D Echo, Colorflow Doppler, Portable, Intravenous OptisonContrastRace: C -----SUMMARY: Technically difficult study.LV size is normal. Normal LV function. Aortic valve not well seen but appears significantly thickened. Severeaortic valve stenosis.Diastolic dysfunction Grade I (Mild): Impaired relaxation with normalLV filling pressures.----- FINDINGS: LV: LV size is normal. There is mild concentric LV hypertrophy. LV EF is normal. Overall wall motion is normal. Estimated EF is 55-59%.RV: RV is not well visualized but appears normal in size with low normal function.LA: LA size is normal.RA: RA size is normal.AO: Aortic root diameter is normal.LIAM: No pericardial effusion.AV: Aortic valve not well seen but appears significantly thickened. Severe aortic valve stenosis. Estimated mean aortic valve gradient 42 mmHg with a valve area of 0.93 cm2.MV: No structural MV abnormalities noted.PV: Pulmonic valve not well seen.TV: No structural TV abnormalities noted.Graham: Hepatic vein pressure is normal, RA pressure < 5mmHg. Diastolic dysfunction Grade I (Mild): Impaired relaxation with normal LV filling pressures.Other: Insufficient TR jet to estimate PA systolic pressure. MEASUREMENTS: 2DParasternal [place] Ao An 2.2 cm LVPWd 1.3 cm Ao Rtd 3.2 cm Index 1.3 cm/m2 LA Ds 3.7 cm IVSd 1.2 cm RWT 0.46 LVIDd 5.8cm Index 2.4 cm/m2 LV Mass 309 g (122-174)* LVIDs 3.6 cm LVM Index 128 g/m2 LV%fs 38 % LVOT 2.3 cm LA Sng Plane LA Area 24 cm2 (8.8-23.4)* LA Vol 76 ml Index 31 ml/m2 LA LngAx 6.1 cm RA Sng Plane RA Vol 70 ml Index 29ml/m2 RA LngAx 5.9 cm RA Area 22 cm2 (8.3-19.5)*LVOT LVOT Area 4.2 cm2 DOPPLERAV For Flow/SARAH AV pkVel 394 cm/s (100-170)* AV AC/ET 0.44 AV mnVel 300 cm/s AV TVI 85 cm AV pkPG 62 mmHg AVpkAcRt 44793 cm/s2 AV Mean G 42 mmHg AV DeRt 1383 cm/s2 AV ET 285 msec AV AC 126 msec (83- 118)*Aortic Valve AV DI 0.22 AV Area 0.93 cm2 (3-5)*LVOT For Flow LVOT TVI 19 cm LVOTmnPG 1.6 mmHg LVOTpkVel 81 cm/s HR 71 bpm LVOTpkPG 2.6 mmHg LVOT LVOT SV 79 ml LVOT CO 5.6 l/min SVi 33 ml/m2 LVOT CI 2.3 l/m/m2 Signed 12/12/2019 05:11 Jennifer Garg [facility] lab procedure 2019-12-12 02:31:46Coronary arteriography showed a distal left main with 25% lesion. Proximal LAD and circumflex coronary arteries were calcified. There was a mid LAD lesion of 75%. Distal LAD stent had in-stent stenosis of at least 75%. And apical LAD lesion of 75% is noted. Circumflex artery AV groove branch showed an ostial lesion of 75%. Right coronary artery was dominant heavily calcified and a proximal and mid lesions of 25%. Left ventriculography was not performed due to severe aortic valve stenosis.[facility]
--- NOTE | 2020-12-02 19:31 | RAD REPORT ---
EXAM DESCRIPTION: RAD - Chest Pa And Lat (2 Views) - 12/02/2020 6:55 pm CLINICAL HISTORY: Cough;Congestion COMPARISON: September 2017 TECHNIQUE: Frontal and lateral views of the chest were obtained. FINDINGS: The lungs are normal volume. Left base pleural effusion present with infiltrate and/ or at electasis present. Heart size is prominent but stable. Trachea is midline. No pneumothorax. No acut e bony finding noted. No aortic abnormality. IMPRESSION: Small left pleural effusion with left base infiltrate and/ or atelectasis.
[2020-12-02 22:44] LABS: Absolute Lymphocytes (CBC) 1.5 K/uL (0.7-4.9); Basophils % 0.2 % (0-1.3); Hematocrit 42.2 % (39.6-49.0); MPV 10.7 fL (7.6-11.3)
[2020-12-02 22:45] LABS: Protime INR 1.16
[2020-12-02 22:50] LABS: ALT/SGPT 20 U/L (12-78); AST/SGOT 14 U/L (15-37); Albumin 3.8 g/dL (3.4-5.0); Alkaline Phosphatase 125 U/L (45-117); BUN Blood Urea Nitrogen 9 mg/dL (7-18); Bicarbonate 32 mmol/L (21-32); Bilirubin Direct 0.2 mg/dL (0-0.2); Bilirubin Total 0.8 mg/dL (0.2-1.0); Glucose Level 105 mg/dL (74-106); NT PRO-BNP 532 pg/mL (<125); Potassium 3.8 mmol/L (3.5-5.1); Protein, Total 8.1 g/dL (6.4-8.2); Sodium Level 141 mmol/L (136-145); Troponin (Emerg Dept Use Only) < 0.02 ng/mL (0.0-0.045)
[2020-12-02] MEDS ORDERED: ONDANSETRON 4 MG/2 ML VIAL ONE (23:08)
[2020-12-02] MEDS ORDERED: MORPHINE 4 MG/ML SYR ONE (23:08)
[2020-12-03] MEDS ORDERED: CYCLOBENZAPRINE 10 MG TAB ONE (01:16)
[2020-12-03] MEDS ORDERED: ASPIRIN EC 81 MG TAB PO ONE (01:20)
[2020-12-03] MEDS ORDERED: ASPIRIN 81 MG CHEWABLE TABLET ONE (01:23)
--- NOTE | 2020-12-03 01:32 | ER ---
Nurse's Notes [facility] Name: Fox Olivia Age: 65 yrs Sex: Male : 1955 Arrival Date: 12/02/2020 Time: 18:05 Bed DIS8 Private MD: Diagnosis: Chest pain, unspecified-musculoskeletal Presentation: 12/02 18:07 Chief complaint: SOB and pain with breathing since this morning. Hx of COPD. hb Coronavirus screen: Client presents with at least one sign or symptom that may indicate coronavirus-19. Standard/surgical mask placed on the client. Provider contacted for isolation considerations. Ebola Screen: No symptoms or risks identified at this time. Risk Assessment: Do you want to hurt yourself or someone else? Patient reports no desire to harm self or others. Onset of symptoms was December 02, 2020. 18:07 Method Of Arrival: Wheelchair hb 18:07 Acuity: EMEKA 2 hb Historical: - Allergies: 18:09 diazepam; hb 18:09 PENICILLINS; hb - PMHx: 18:09 CHF; COPD; Diabetes - NIDDM; Hypertension; neuropathy; hb - Immunization history:: Client reports having NOT received the Covid vaccine. - Social history:: Smoking status: Patient reports the use of cigarette tobacco products, smokes one pack cigarettes per day. Screenin:10 Abuse screen: Denies threats or abuse. Nutritional screening: No deficits noted. bb Tuberculosis screening: No symptoms or risk factors identified. Fall Risk None identified. Assessment: 22:10 General: Appears in no apparent distress. Behavior is cooperative. Pain: Complains of bb pain in chest. Neuro: Level of Consciousness is awake, alert, obeys commands, Oriented to person, place, time, situation. Cardiovascular: Capillary refill < 3 seconds. Respiratory: Airway is patent Respiratory effort is even, unlabored, Breath sounds are clear bilaterally. GI: No signs and/or symptoms were reported involving the gastrointestinal system. Derm: Skin is pink, warm \T\ dry. Musculoskeletal: Circulation, motion, and sensation intact. 23:30 Reassessment: No changes from previously documented assessment. Patient is alert, bb oriented x 3, equal unlabored respirations, skin warm/dry/pink. pt awaiting diagnostic results. 12/03 01:10 Reassessment: Patient is alert, oriented x 3, equal unlabored respirations, skin bb warm/dry/pink. pt awaiting results of repeat troponin. 01:46 Reassessment: Patient is alert, oriented x 3, equal unlabored respirations, skin bb warm/dry/pink. pt and spouse verbalized understanding of and agrees to plan of care discharge instructions given pt assisted to exit via wheelchair accompanied by spouse Patient states feeling better. Vital Signs: 12/02 18:07 BP 155 / 74; Pulse 88; Resp 36; Temp 98.9; Pulse Ox 91% on R/A; Pain 10/10; hb 18:35 Pulse Ox 95% on 2 lpm NC; jp3 12/03 01:09 BP 157 / 70; Pulse 72; Resp 18 S; Temp 98.5(TE); Pulse Ox 100% on 2 lpm NC; bb 01:47 BP 153 / 68; Pulse 72; Resp 18 S; Pulse Ox 95% on R/A; bb ED Course: 12/02 18:05 Patient arrived in ED. ds1 18:09 Triage completed. hb 18:09 Arm band placed on. hb 18:35 COVID swab sent to lab. jp3 18:35 Oxygen administration via nasal cannula \T\ 2L/min Response to oxygen therapy: Pt SPO2 jp3 remained at 95 but the patient reported feeling better being on the O2. 18:55 Chest Pa And Lat (2 Views) XRAY In Process Unspecified. EDMS 22:01 Glenda Villanueva F[facility]-C [facility]. kb 22:01 Raymond Larsen MD is Attending Physician. kb 22:10 Patient has correct armband on for positive identification. Adult w/ patient. pt in bb diagnostic chair. 22:23 Initial lab(s) drawn, by me, sent to lab. Inserted saline lock: 20 gauge in left jp3 antecubital area, using aseptic technique. Blood collected. 23:27 CT Chest For PE Angio In Process Unspecified. EDMS 12/03 01:01 Diane Alanis, JUVE is Primary Nurse. bb 01:47 No provider procedures requiring assistance completed. IV discontinued, intact, bb bleeding controlled, No redness/swelling at site. Pressure dressing applied. Administered Medications: 12/02 21:49 Drug: Zofran (Ondansetron) 4 mg Route: IVP; Site: left antecubital; bb 12/03 00:49 Follow up: Response: No adverse reaction 12/02 22:50 Drug: morphine 4 mg {Note: RASS 0.} Route: IVP; Site: left antecubital; bb 23:45 Follow up: Response: No adverse reaction; RASS: Alert and Calm (0) 12/03 00:55 Drug: Aspirin Chewable Tablet 324 mg Route: PO; bb 00:55 Drug: Flexeril (cyclobenzaprine) 10 mg Route: PO; bb Outcome: 01:32 Discharge ordered by . tiffany 01:47 Discharged to home via wheelchair, with family. bb 01:47 Condition: stable 01:47 Discharge instructions given to patient, family, Instructed on discharge instructions, follow up and referral plans. medication usage, Demonstrated understanding of instructions, follow-up care, medications, Prescriptions given X 2. 01:48 Patient left the ED. bb Signatures: Dispatcher [employer] EDMS Glenda Villanueva, СВЕТЛАНА HUNT-Mayi Cordova ds1 Diane Alanis RN RN Mireya Wise RN RN Lamont Oliveira jp3
--- NOTE | 2020-12-03 01:32 | EDPHYS ---
Physician Documentation [facility] Name: Fox Olivia Age: 65 yrs Sex: Male : 1955 Arrival Date: 12/02/2020 Time: 18:05 Bed DIS8 Private MD: ED Physician Raymond Larsen HPI: 12/02 23:03 This 65 yrs old Male presents to ER via Wheelchair with complaints of kb Breathing Difficulty. 23:03 The patient or guardian reports chest pain that is located primarily in the anterior kb chest wall, right. Onset: this morning. The pain does not radiate. Associated signs and symptoms: Pertinent positives: shortness of breath. The chest pain is described as aching. Duration: The patient or guardian reports a single episode. Modifying factors: The symptoms are alleviated by nothing. the symptoms are aggravated by activity, movement, palpation of area. Severity of pain: At its worst the pain was mild moderate in the emergency department the pain is unchanged. The patient has not experienced similar symptoms in the past. The patient has not recently seen a physician. Historical: - Allergies: 18:09 diazepam; hb 18:09 PENICILLINS; hb - PMHx: 18:09 CHF; COPD; Diabetes - NIDDM; Hypertension; neuropathy; hb - Immunization history:: Client reports having NOT received the Covid vaccine. - Social history:: Smoking status: Patient reports the use of cigarette tobacco products, smokes one pack cigarettes per day. ROS: 22:59 Constitutional: Negative for fever, chills, and weight loss. kb 22:59 Cardiovascular: Positive for chest pain, of the anterior aspect of right upper chest, Negative for edema, orthopnea, palpitations, paroxysmal nocturnal dyspnea. 22:59 Respiratory: Positive for cough, shortness of breath. 22:59 All other systems are negative. Exam: 22:59 Constitutional: This is a well developed, well nourished patient who is awake, alert, kb and in no acute distress. Head/Face: Normocephalic, atraumatic. ENT: Moist Mucous membranes Cardiovascular: Regular rate and rhythm with a normal S1 and S2. No gallops, murmurs, or rubs. No pulse deficits. Abdomen/GI: Soft, non-tender. No distention Skin: Warm, dry with normal turgor. Normal color. MS/ Extremity: Pulses equal, no cyanosis. Neurovascular intact. Full, normal range of motion. Neuro: Awake and alert, GCS 15, oriented to person, place, time, and situation. Moves all extremities. Normal gait. Psych: Awake, alert, with orientation to person, place and time. Behavior, mood, and affect are within normal limits. 22:59 Respiratory: the patient does not display signs of respiratory distress, Respirations: normal, Breath sounds: wheezing: expiratory that is mild, is scattered. Vital Signs: 18:07 BP 155 / 74; Pulse 88; Resp 36; Temp 98.9; Pulse Ox 91% on R/A; Pain 10/10; hb 18:35 Pulse Ox 95% on 2 lpm NC; jp3 12/03 01:09 BP 157 / 70; Pulse 72; Resp 18 S; Temp 98.5(TE); Pulse Ox 100% on 2 lpm NC; bb 01:47 BP 153 / 68; Pulse 72; Resp 18 S; Pulse Ox 95% on R/A; bb MDM: 12/02 22:01 Patient medically screened. kb 22:59 Data reviewed: vital signs, nurses notes. Data interpreted: Pulse oximetry: on room air kb is 91 %. Interpretation: borderline. 12/03 00:17 The patient was given aspirin in the Emergency Department. Counseling: I had a detailed kb discussion with the patient and/or guardian regarding: the historical points, exam findings, and any diagnostic results supporting the discharge/admit diagnosis, lab results, radiology results, the need for further work-up and treatment in the hospital. 00:34 ED course: Discussed admission with pt. Pt does not want to stay in the hospital. kb States he has been using a sledge hammer with his right arm and thinks he pulled a muscle. Discussed with Dr Larsen. Agrees that pt can be discharged home after a repeat set of enzymes. 12/02 19:44 Order name: SARS-COV-2 RT PCR; Complete Time: 20:25 EDMS 12/02 22:06 Order name: Basic Metabolic Panel; Complete Time: 22:54 kb 12/02 22:06 Order name: CBC with Diff; Complete Time: 23:04 kb 12/02 22:06 Order name: LFT's; Complete Time: 22:54 kb 12/02 22:06 Order name: Magnesium; Complete Time: 22:54 kb 12/02 18:21 Order name: Chest Pa And Lat (2 Views) XRAY; Complete Time: 20:25 kb 12/02 22:06 Order name: NT PRO-BNP; Complete Time: 22:54 kb 12/02 22:06 Order name: PT-INR; Complete Time: 23:12 kb 12/02 22:06 Order name: Troponin (emerg Dept Use Only); Complete Time: 22:54 kb 12/02 22:55 Order name: CT Chest For PE Angio kb 12/03 00:23 Order name: Troponin (emerg Dept Use Only); Complete Time: 01:16 kb 12/02 22:06 Order name: EKG; Complete Time: 22:08 kb 12/02 22:06 Order name: Cardiac monitoring; Complete Time: 22:24 kb 12/02 22:06 Order name: IV Saline Lock; Complete Time: 22:24 kb 12/02 22:06 Order name: Labs collected and sent; Complete Time: 22:24 kb 12/02 22:06 Order name: O2 Per Protocol; Complete Time: 22:24 kb 12/02 22:06 Order name: O2 Sat Monitoring 12/03 00:23 Order name: EKG; Complete Time: 00:23 kb 12/03 00:23 Order name: EKG - Nurse/Tech kb Administered Medications: 12/02 21:49 Drug: Zofran (Ondansetron) 4 mg Route: IVP; Site: left antecubital; bb 12/03 00:49 Follow up: Response: No adverse reaction 12/02 22:50 Drug: morphine 4 mg {Note: RASS 0.} Route: IVP; Site: left antecubital; 23:45 Follow up: Response: No adverse reaction; RASS: Alert and Calm (0) bb 12/03 00:55 Drug: Aspirin Chewable Tablet 324 mg Route: PO; bb 00:55 Drug: Flexeril (cyclobenzaprine) 10 mg Route: PO; bb Disposition: 08:07 Co-signature as Attending Physician, Raymond Larsen MD I agree with the assessment and gavin plan of care. Disposition Summary: 12/03/20 01:32 Discharge Ordered Location: Home kb Condition: Stable kb Diagnosis - Chest pain, unspecified - musculoskeletal kb Followup: kb - With: Emergency Department - When: As needed - Reason: Worsening of condition Followup: kb - With: Private Physician - When: 2 - 3 days - Reason: Recheck today's complaints, Continuance of care, Re-evaluation by your physician Discharge Instructions: - Discharge Summary Sheet kb - Chest Wall Pain, [id number] kb Forms: - Medication Reconciliation Form kb - Thank You Letter kb - Antibiotic Education kb - Prescription Opioid Use kb Prescriptions: - Cyclobenzaprine 10 mg Oral Tablet - take 1 tablet by ORAL route every 8 hours As needed; 21 tablet; Refills: 0, kb Product Selection Permitted - Diclofenac Sodium 75 mg Oral tablet,delayed release (DR/EC) - take 1 tablet by ORAL route 2 times per day As needed; 30 tablet; Refills: 0, kb Product Selection Permitted Signatures: Dispatcher [employer] EDGlenda Rangel FNP-C FNP-Raymond Batista MD MD cha Ballard, Brenda, RN RN Mireya Wise RN RN Corrections: (The following items were deleted from the chart) 12/02 18:50 18:22 CORONAVIRUS+MR.LAB.BRZ ordered. EDCA EDMS
[2020-12-03 02:02] VITALS: TEMP 98.5
[2020-12-03 02:05] VITALS: BP 153/68; O2SAT 95
--- NOTE | 2020-12-03 12:09 | RAD REPORT ---
EXAM DESCRIPTION: Chest For Pe Angio 12/02/2020 11:57 PM CDT CLINICAL HISTORY: 65 years, Male, Dyspnea;Chest pain COMPARISON: None. TECHNIQUE: Multiple transaxial tomograms of the chest were obtained from the lung apices through the lung bases utilizing 2 mm slice thickness at 2 mm interval reconstruction after the administration o f large bolus of IV contrast for complete opacification of the pulmonary arteries. Subsequent maximum intensity projection images were generated in the coronal and sagittal plane for r eview. This exam was performed according to our departmental dose-optimization protocol, which includes auto mated exposure control, adjustment of the mA and/or kV according to patient size and/or use of iterat shawn reconstruction technique. FINDINGS: The lungs parenchyma demonstrate presence of small left pleural effusion with compressive atelectatic changes and/or infiltrate. There is mild increased pulmonary markings and haziness within the lung parenchyma perhaps suggesting air trapping/or early fluid overload. The right lung demonstr ate no significant abnormalities. The trachea mainstem bronchus demonstrate to be normal. There is no significant pericardial effusion. The thoracic aorta demonstrate intimal aortic arch calcification. There is no evidence for thoracic a ortic dissection. Metallic stent within the aortic valve correspond to previous transaortic valvular repair. The heart is increased in size with probable left ventricular hypertrophy. No evidence for ri ght ventricular strain. There are coronary artery calcifications. There is no significant mediastinal and/or hilar lymphadenopathy. The axillary regions demonstrate to be clear. Pulmonary arteries demonstrate to be normal, no intraluminal defect are seen that would suggest pulmo nary embolus. The bone windows demonstrate no significant skeletal lesions. The visualized portions of the upper abdomen demonstrate to be unremarkable. IMPRESSION: No evidence for pulmonary embolism and/or thoracic aortic dissection. Small left pleural effusion with compressive atelectatic changes and/or infiltrate. Mild increased pulmonary markings and haziness within the lung parenchyma perhaps suggesting air trap ping/or early fluid overload. Cardiomegaly with probable left ventricular hypertrophy. Metallic stent within the aortic valve correspond to previous transaortic valvular repair. Electronically signed by: Isai Real MD 12/03/2020 12:08 AM CDT Due to temporary technical issues with the PACS/Fluency reporting system, reports are being signed by the in house radiologists without review as a courtesy to insure prompt reporting. The interpreting radiologist is fully responsible for the content of the report.
--- NOTE | 2020-12-03 16:54 | EKG ---
Test Date: 2020-12-02 Test Time: 22:34:54 Occupational Health Specialist: OSMAN MEASUREMENT RESULTS: Intervals: Rate: 75 TN: 164 QRSD: 90 QT: 406 QTc: 453 [place]: P: 58 TN: 164 QRS: 97 T: -6 INTERPRETIVE STATEMENTS: Normal sinus rhythm Rightward axis ST & T wave abnormality, consider inferior ischemia Abnormal ECG Compared to ECG 10/05/2017 22:52:33 Right-axis deviation now present ST (T wave) deviation now present T-wave abnormality no longer present Possible ischemia still present Electronically Signed On 12-03-20 16:53:32 CDT by Deandre Mayo
--- NOTE | 2020-12-03 16:54 | EKG ---
Test Date: 2020-12-03 Test Time: 01:21:41 Nursing Coordinator: JAISON MEASUREMENT RESULTS: Intervals: Rate: 73 [place]: 162 QRSD: 86 QT: 412 QTc: 453 [place]: P: 60 [place]: 162 QRS: 97 T: 14 INTERPRETIVE STATEMENTS: Normal sinus rhythm Rightward axis T wave abnormality, consider inferior ischemia Abnormal ECG Compared to ECG 12/02/2020 22:34:54 T-wave abnormality now present ST (T wave) deviation no longer present Possible ischemia still present Electronically Signed On 12-03-20 16:53:31 CDT by Deandre Mayo
== END 2020-12-03 01:48 | disposition home or self-care (01) ==
LOC: ER 18:05
DX: R07.89 Other chest pain (principal); I10 Essential (primary) hypertension; F17.210 Nicotine dependence, cigarettes, uncomplicated; Z88.0 Allergy status to penicillin; Z88.8 Allergy status to other drugs, medicaments and biological substances; Z20.822 Contact with and (suspected) exposure to COVID-19
CPT/HCPCS: 93005 ×2; 85025; 80048; 36415; 83735; 85610; 80076; 84484 ×2; 83880; 71275; 71046; 96375; 96374; 99284; U0003; Q9967; J2405